=== PATIENT | male | born 1985 | race African-American/Black ===

== ENCOUNTER 2018-11-28 18:48 | Emergency (ER) | payer SELFPAY ==
--- NOTE | 2018-11-28 18:57 | EDM.PDOC ---
ED HPI GENERAL MEDICAL PROBLEM - General Chief Complaint: Chest Pain Stated Complaint: ALL OVER PAIN AND CHEST PAIN Time Seen by Provider: 11/28/18 18:51 - History of Present Illness INITIAL COMMENTS - FREE TEXT/NARRATIVE: HISTORY AND PHYSICAL: History of present illness: Patient's a 33-year-old black male who presents with concern of flu type symptoms and chest pain over several weeks he denies fever chills shortness of breath nausea vomiting or other complaints his main concern relates to generalized body aches and weakness Review of systems: As per history of present illness and below otherwise all systems reviewed and negative. Past medical history: As per history of present illness and as reviewed below otherwise noncontributory. Surgical history: As per history of present illness and as reviewed below otherwise noncontributory. Social history: No reported history of drug or alcohol abuse. Family history: As per history of present illness and as reviewed below otherwise noncontributory. Physical exam: HEENT: Atraumatic, normocephalic, pupils reactive, negative for conjunctival pallor or scleral icterus, mucous membranes moist, throat clear, neck supple, nontender, trachea midline. Lungs: Clear to auscultation, breath sounds equal bilaterally, chest nontender. Heart: S1S2, regular, negative for clicks, rubs, or JVD. Abdomen: Soft, nondistended, nontender. Negative for masses or hepatosplenomegaly. Negative for costovertebral tenderness. Pelvis: Stable nontender. Genitourinary: Deferred. Rectal: Deferred. Extremities: Atraumatic, negative for cords or calf pain. Neurovascular unremarkable. Neuro: Awake, alert, oriented. Cranial nerves II through XII unremarkable. Cerebellum unremarkable. Motor and sensory unremarkable throughout. Exam nonfocal. Diagnostics: CBC CMP troponin PT/INR chest x-ray EKG influenza screen Therapeutics: IV O2 monitor Impression: #1 atypical chest pain #2 probable viral syndrome Definitive disposition and diagnosis as appropriate pending reevaluation and review of above. - Related Data Allergies Allergy/AdvReac Type Severity Reaction Status Date / Time No Known Allergies Allergy Verified 11/28/18 18:54 Home Meds: Home Meds . [No Known Home Meds] 11/28/18 [History] ED ROS GENERAL - Review of Systems Review Of Systems: ROS reveals no pertinent complaints other than HPI. ED EXAM, GENERAL - Physical Exam Exam: See Below (See dictation) Course - Vital Signs Last Recorded V/S: Last Vital Signs Temp 36.3 C 11/28/18 18:54 Pulse 82 11/28/18 18:54 Resp 16 11/28/18 18:54 BP 120/81 11/28/18 18:54 Pulse Ox 98 11/28/18 19:17 - Orders/Labs/Meds Orders: Active Orders 24 hr Category Date Time Status Cardiac Monitoring [RC] . DIRECTED Care 11/28/18 19:15 Active EKG Documentation Completion [RC] STAT Care 11/28/18 19:15 Active Oxygen Therapy [RC] ASDIRECTED Care 11/28/18 19:15 Active Pulse Oximetry [RC] ASDIRECTED Care 11/28/18 19:15 Active COMPREHENSIVE METABOLIC PN,CMP [CHEM] Stat Lab 11/28/18 19:10 Results TROPONIN I [CHEM] Stat Lab 11/28/18 19:10 Results Sodium Chloride 0.9% [Saline Flush] Med 11/28/18 19:15 Active 10 ml FLUSH ASDIRECTED PRN Sodium Chloride 0.9% [Saline Flush] Med 11/28/18 19:15 Active 2.5 ml FLUSH ASDIRECTED PRN Saline Lock Insert [OM.PC] Stat Oth 11/28/18 19:15 Ordered Medication Orders Sodium Chloride (Saline Flush) 10 ml FLUSH ASDIRECTED PRN PRN Reason: Keep Vein Open Sodium Chloride (Saline Flush) 2.5 ml FLUSH ASDIRECTED PRN PRN Reason: Keep Vein Open Labs: Laboratory Tests 11/28/18 11/28/18 11/28/18 Range/Units 19:10 19:10 19:15 WBC 4.88 (4.0-11.0) K/uL RBC 5.86 (4.50-5.90) M/uL Hgb 18.1 H (13.0-17.0) g/dL Hct 50.2 H (38.0-50.0) % MCV 85.7 (80.0-98.0) fL MCH 30.9 (27.0-32.0) pg MCHC 36.1 (31.0-37.0) g/dL RDW Std Deviation 39.3 (28.0-62.0) fl RDW Coeff of Jannette 13 (11.0-15.0) % Plt Count 136 L (150-400) K/uL MPV 11.30 (7.40-12.00) fL Neut % (Auto) 68.5 (48.0-80.0) % Lymph % (Auto) 21.7 (16.0-40.0) % [place] % (Auto) 9.0 (0.0-15.0) % Eos % (Auto) 0.6 (0.0-7.0) % Baso % (Auto) 0.2 (0.0-1.5) % Neut # (Auto) 3.3 (1.4-5.7) K/uL Lymph # (Auto) 1.1 (0.6-2.4) K/uL [place] # (Auto) 0.4 (0.0-0.8) K/uL Eos # (Auto) 0.0 (0.0-0.7) K/uL Baso # (Auto) 0.0 (0.0-0.1) K/uL Nucleated RBC % 0.0 /100WBC Nucleated RBCs # 0 K/uL INR 0.99 Sodium 138 (136-148) mmol/L Potassium 4.5 (3.5-5.1) mmol/L Chloride 102 (98-107) mmol/L Carbon Dioxide 31.8 (21.0-32.0) mmol/L BUN 18 (7.0-18.0) mg/dL Creatinine 1.6 H (0.8-1.3) mg/dL Est Cr Clr Drug Dosing TNP Estimated GFR (MDRD) > 60.0 ml/min Glucose 115 H (74-106) mg/dL Calcium 8.4 L (8.5-10.1) mg/dL Total Bilirubin 0.9 (0.2-1.0) mg/dL ALT 619 H (14-63) IU/L Alkaline Phosphatase 65 (46-116) U/L Troponin I < 0.050 (0.000-0.056) ng/mL Total Protein 7.5 (6.4-8.2) g/dL Albumin 3.4 (3.4-5.0) g/dL Globulin 4.1 H (2.6-4.0) g/dL Albumin/Globulin Ratio 0.8 L (0.9-1.6) Meds: Medications Generic Name Dose Route Start Last Admin Trade Name Freq PRN Reason Stop Dose Admin Sodium Chloride 10 ml 11/28/18 19:15 Saline Flush FLUSH ASDIRECTED PRN Keep Vein Open Sodium Chloride 2.5 ml 11/28/18 19:15 Saline Flush FLUSH ASDIRECTED PRN Keep Vein Open Departure - Departure Time of Disposition: 20:04 Disposition: Home, Self-Care 01 Condition: Good Clinical Impression: Influenza A, Dehydration - Discharge Information Forms: ED Department Discharge Additional Instructions: The following information is given to patients seen in the emergency department who are being discharged to home. This information is to outline your options for follow-up care. We provide all patients seen in our emergency department with a follow-up referral. The need for follow-up, as well as the timing and circumstances, are variable depending upon the specifics of your emergency department visit. If you don't have a primary care physician on staff, we will provide you with a referral. We always advise you to contact your personal physician following an emergency department visit to inform them of the circumstance of the visit and for follow-up with them and/or the need for any referrals to a consulting specialist. The emergency department will also refer you to a specialist when appropriate. This referral assures that you have the opportunity for followup care with a specialist. All of these measure are taken in an effort to provide you with optimal care, which includes your followup. Under all circumstances we always encourage you to contact your private physician who remains a resource for coordinating your care. When calling for followup care, please make the office aware that this follow-up is from your recent emergency room visit. If for any reason you are refused follow-up, please contact the [facility] emergency department at and asked to speak to the emergency department charge nurse. Push fluids contact precautions as discussed follow-up private medical doctor as needed as discussed and return as needed as discussed - My Orders Last 24 Hours: My Active Orders 11/28/18 19:10 COMPREHENSIVE METABOLIC PN,CMP [CHEM] Stat TROPONIN I [CHEM] Stat 11/28/18 19:15 Cardiac Monitoring [RC] . DIRECTED EKG Documentation Completion [RC] STAT Oxygen Therapy [RC] ASDIRECTED Pulse Oximetry [RC] ASDIRECTED Sodium Chloride 0.9% [Saline Flush] 10 ml FLUSH ASDIRECTED PRN Sodium Chloride 0.9% [Saline Flush] 2.5 ml FLUSH ASDIRECTED PRN Saline Lock Insert [OM.PC] Stat - Assessment/Plan Last 24 Hours: My Active Orders 11/28/18 19:10 COMPREHENSIVE METABOLIC PN,CMP [CHEM] Stat TROPONIN I [CHEM] Stat 11/28/18 19:15 Cardiac Monitoring [RC] . DIRECTED EKG Documentation Completion [RC] STAT Oxygen Therapy [RC] ASDIRECTED Pulse Oximetry [RC] ASDIRECTED Sodium Chloride 0.9% [Saline Flush] 10 ml FLUSH ASDIRECTED PRN Sodium Chloride 0.9% [Saline Flush] 2.5 ml FLUSH ASDIRECTED PRN Saline Lock Insert [OM.PC] Stat
[2018-11-28] MEDS ORDERED: Sodium Chloride 0.9% 2.5 ML Syringe FLUSH PRN (19:15)
[2018-11-28] MEDS ORDERED: Sodium Chloride 0.9% 10 ML Syringe FLUSH PRN (19:15)
[2018-11-28 19:36] LABS: CHLORIDE,CL 102 mmol/L (98-107); SODIUM,NA 138 mmol/L (136-148)
--- NOTE | 2018-11-28 20:04 | CR ---
INDICATION: chest pain TECHNIQUE: Chest 1 view. COMPARISON: None. FINDINGS: Cardiovascular and mediastinum: Heart size and vasculature are normal in caliber and appearance. Mediastinum is within normal limits. Lungs and pleural space: Lungs are clear. No sign of infiltrate or mass. No sign of pleural effusion. No pneumothorax. Bones and soft tissues: No significant findings. IMPRESSION: Unremarkable chest. Dictated by: Bethel Lerma MD @ 11/28/2018 20:03:13 (Electronically Signed)
[2018-11-28] MEDS ORDERED: Sodium Chloride 0.9% 1,000 ML IV SCH (20:15)
== END 2018-11-28 21:03 | disposition home or self-care (01) ==
LOC: MW.ED 18:48
DX: J10.1 Influenza due to other identified influenza virus with other respiratory manifestations (principal); R07.89 Other chest pain
CPT/HCPCS: 36415; 71045; 80053; 84484; 85025; 85610; 87804; 93005; 96360; 99284; J7040

== ENCOUNTER 2018-12-02 14:49 | Inpatient (IN) | payer OTHER ==
--- NOTE | 2018-12-02 16:06 | EDM.PDOC ---
ED HPI GENERAL MEDICAL PROBLEM - General Chief Complaint: Genitourinary Problem Stated Complaint: FLU Time Seen by Provider: 12/02/18 16:03 - History of Present Illness INITIAL COMMENTS - FREE TEXT/NARRATIVE: HISTORY AND PHYSICAL: History of present illness: Patient 33-year-old black male who was recently diagnosed with influenza who states he's noted dark urine and was concerned about possible blood in his urine over the last day or so. He is otherwise without new complaints he denies trauma denies history urolithiasis denies abdominal or back pain. Review of systems: As per history of present illness and below otherwise all systems reviewed and negative. Past medical history: As per history of present illness and as reviewed below otherwise noncontributory. Surgical history: As per history of present illness and as reviewed below otherwise noncontributory. Social history: No reported history of drug or alcohol abuse. Family history: As per history of present illness and as reviewed below otherwise noncontributory. Physical exam: HEENT: Atraumatic, normocephalic, pupils reactive, negative for conjunctival pallor or scleral icterus, mucous membranes moist, throat clear, neck supple, nontender, trachea midline. Lungs: Clear to auscultation, breath sounds equal bilaterally, chest nontender. Heart: S1S2, regular, negative for clicks, rubs, or JVD. Abdomen: Soft, nondistended, nontender. Negative for masses or hepatosplenomegaly. Negative for costovertebral tenderness. Pelvis: Stable nontender. Genitourinary: Deferred. Rectal: Deferred. Extremities: Atraumatic, negative for cords or calf pain. Neurovascular unremarkable. Neuro: Awake, alert, oriented. Cranial nerves II through XII unremarkable. Cerebellum unremarkable. Motor and sensory unremarkable throughout. Exam nonfocal. Diagnostics: UA Therapeutics: None Impression: #1 history of influenza #2 medical screening exam Definitive disposition and diagnosis as appropriate pending reevaluation and review of above. generalized body Pain Score (Numeric/FACES): 5 - Related Data Allergies Allergy/AdvReac Type Severity Reaction Status Date / Time No Known Allergies Allergy Verified 12/02/18 15:07 Home Meds: Home Meds . [No Known Home Meds] 11/28/18 [History] Past Medical History - Past Health History Medical/Surgical History: Denies Medical/Surgical History HEENT History: Reports: None Cardiovascular History: Reports: None Respiratory History: Reports: None Gastrointestinal History: Reports: None Genitourinary History: Reports: None Musculoskeletal History: Reports: None Neurological History: Reports: None Psychiatric History: Reports: None Endocrine/Metabolic History: Reports: None Hematologic History: Reports: None Immunologic History: Reports: None Oncologic (Cancer) History: Reports: None Dermatologic History: Reports: None - Infectious Disease History Infectious Disease History: Reports: None - Past Surgical History Head Surgeries/Procedures: Reports: None Social & Family History - Family History Family Medical History: Noncontributory - Tobacco Use Smoking Status *Q: Never Smoker Second Hand Smoke Exposure: No - Caffeine Use Caffeine Use: Reports: Tea - Recreational Drug Use Recreational Drug Use: No ED ROS GENERAL - Review of Systems Review Of Systems: ROS reveals no pertinent complaints other than HPI. ED EXAM, GENERAL - Physical Exam Exam: See Below (See dictation) Course - Vital Signs Last Recorded V/S: Last Vital Signs Temp 36.6 C 12/02/18 19:28 Pulse 91 12/02/18 19:28 Resp 20 12/02/18 19:28 BP 119/74 12/02/18 19:28 Pulse Ox 97 12/02/18 19:28 - Orders/Labs/Meds Labs: Laboratory Tests 12/02/18 12/02/18 12/02/18 Range/Units 15:55 16:23 16:23 WBC 10.15 (4.0-11.0) K/uL RBC 5.36 (4.50-5.90) M/uL Hgb 16.4 (13.0-17.0) g/dL Hct 45.8 (38.0-50.0) % MCV 85.4 (80.0-98.0) fL MCH 30.6 (27.0-32.0) pg MCHC 35.8 (31.0-37.0) g/dL RDW Std Deviation 39.6 (28.0-62.0) fl RDW Coeff of Jannette 13 (11.0-15.0) % Plt Count 241 (150-400) K/uL MPV 11.00 (7.40-12.00) fL Neut % (Auto) 83.9 H (48.0-80.0) % Lymph % (Auto) 8.2 L (16.0-40.0) % [place] % (Auto) 7.0 (0.0-15.0) % Eos % (Auto) 0.7 (0.0-7.0) % Baso % (Auto) 0.2 (0.0-1.5) % Neut # (Auto) 8.5 H (1.4-5.7) K/uL Lymph # (Auto) 0.8 (0.6-2.4) K/uL [place] # (Auto) 0.7 (0.0-0.8) K/uL Eos # (Auto) 0.1 (0.0-0.7) K/uL Baso # (Auto) 0.0 (0.0-0.1) K/uL Nucleated RBC % 0.0 /100WBC Nucleated RBCs # 0 K/uL Sodium 133 L (136-148) mmol/L Potassium 4.8 (3.5-5.1) mmol/L Chloride 101 (98-107) mmol/L Carbon Dioxide 25.2 (21.0-32.0) mmol/L BUN 26 H (7.0-18.0) mg/dL Creatinine 1.6 H (0.8-1.3) mg/dL Est Cr Clr Drug Dosing 66.89 mL/min Estimated GFR (MDRD) > 60.0 ml/min Glucose 175 H (74-106) mg/dL Calcium 8.8 (8.5-10.1) mg/dL Total Bilirubin 0.6 (0.2-1.0) mg/dL AST 2765 H (15-37) IU/L ALT 936 H (14-63) IU/L Alkaline Phosphatase 73 (46-116) U/L Creatine Kinase 094386 H (26-308) U/L Total Protein 6.7 (6.4-8.2) g/dL Albumin 2.4 L (3.4-5.0) g/dL Globulin 4.3 H (2.6-4.0) g/dL Albumin/Globulin Ratio 0.6 L (0.9-1.6) Urine Color BROWN Urine Appearance CLEAR Urine pH 6.0 (5.0-8.0) Ur Specific [place] >= 1.030 (1.001-1.035) Urine Protein >=300 H (NEGATIVE) mg/dL Urine Glucose (UA) NEGATIVE (NEGATIVE) mg/dL Urine Ketones NEGATIVE (NEGATIVE) mg/dL Urine Occult Blood LARGE H (NEGATIVE) Urine Nitrite POSITIVE H (NEGATIVE) Urine Bilirubin SMALL H (NEGATIVE) Urine Ictotest NEGATIVE Urine Urobilinogen 1.0 (<2.0) EU/dL Ur Leukocyte Esterase NEGATIVE (NEGATIVE) Urine RBC 2-3 (0-2/HPF) Urine WBC 0-1 (0-5/HPF) Ur Epithelial Cells RARE (NONE-FEW) Urine Bacteria FEW (NEGATIVE) Meds: Medications Discontinued Medications Generic Name Dose Route Start Last Admin Trade Name Freq PRN Reason Stop Dose Admin Sodium Chloride 2,000 mls @ 999 mls/hr 12/02/18 16:14 12/02/18 16:52 Normal Saline IV 12/02/18 18:14 999 mls/hr STAT ONE Administration Departure - Departure Time of Disposition: 19:38 Disposition: Admitted As Inpatient 68 Condition: Good Clinical Impression: Rhabdomyolysis, Transaminitis, Influenza A - Discharge Information Referrals: PCP,Unknown [Primary Care Provider] - Forms: ED Department Discharge
[2018-12-02] MEDS ORDERED: Sodium Chloride 0.9% 2,000 ML IV ONE (16:14)
[2018-12-02 17:02] LABS: CHLORIDE,CL 101 mmol/L (98-107); SODIUM,NA 133 mmol/L (136-148)
[2018-12-02] MEDS: Sodium Chloride 0.9% 1,000 ML IV SCH (19:41)
[2018-12-02] MEDS ORDERED: Sodium Chloride 0.9% 1,000 ML IV ONE ×2 (21:45→21:57)
--- NOTE | 2018-12-02 22:27 | PCM.HP ---
H&P History of Present Illness - General Date of Service: 12/02/18 Admit Problem/Dx: Admission Diagnosis/Problem Admission Diagnosis/Problem Rhabdomyolysis - History of Present Illness Initial Comments - Free Text/Narative: 33 yo male who presents with five day history of fevers, myalgias and cough. He tested positive for influenza A November 28 when he seen in the ED. He presents to the ED again due to worsening symptoms and dark colored urine. He does report some pain on urination. Patient denies any use of over the counter medications. generalized body Pain Score (Numeric/FACES): 2 - Related Data Allergies/Adverse Reactions: Allergies Allergy/AdvReac Type Severity Reaction Status Date / Time No Known Allergies Allergy Verified 12/02/18 15:07 Home Medications: Home Meds . [No Known Home Meds] 11/28/18 [History] Past Medical History - Past Health History Medical/Surgical History: Denies Medical/Surgical History HEENT History: Reports: None Cardiovascular History: Reports: None Respiratory History: Reports: None Gastrointestinal History: Reports: None Genitourinary History: Reports: None Musculoskeletal History: Reports: None Neurological History: Reports: None Psychiatric History: Reports: None Endocrine/Metabolic History: Reports: None Hematologic History: Reports: None Immunologic History: Reports: None Oncologic (Cancer) History: Reports: None Dermatologic History: Reports: None - Infectious Disease History Infectious Disease History: Reports: Influenza - Past Surgical History Head Surgeries/Procedures: Reports: None HEENT Surgical History: Reports: None Social & Family History - Family History Family Medical History: Noncontributory - Tobacco Use Smoking Status *Q: Never Smoker Second Hand Smoke Exposure: No - Caffeine Use Caffeine Use: Reports: Tea - Recreational Drug Use Recreational Drug Use: No H&P Review of Systems - Review of Systems: Review Of Systems: ROS reveals no pertinent complaints other than HPI. Exam - Exam Exam: See Below - Vital Signs Vital Signs: Last Vital Signs Temp 36.6 C 12/02/18 19:28 Pulse 91 12/02/18 19:28 Resp 20 12/02/18 19:28 BP 119/74 12/02/18 19:28 Pulse Ox 97 12/02/18 19:28 Weight: 86 kg - Exam General: Alert, Oriented Lungs: Clear to Auscultation, Normal Respiratory Effort Cardiovascular: Regular Rate, Regular Rhythm GI/Abdominal Exam: Soft, Non-Tender Extremities: Non-Tender, No Pedal Edema Skin: Warm, Dry, Intact - Patient Data Lab Results Last 24 hrs: Laboratory Results - last 24 hr 12/02/18 12/02/18 12/02/18 Range/Units 15:55 16:23 16:23 WBC 10.15 (4.0-11.0) K/uL RBC 5.36 (4.50-5.90) M/uL Hgb 16.4 (13.0-17.0) g/dL Hct 45.8 (38.0-50.0) % MCV 85.4 (80.0-98.0) fL MCH 30.6 (27.0-32.0) pg MCHC 35.8 (31.0-37.0) g/dL RDW Std Deviation 39.6 (28.0-62.0) fl RDW Coeff of Jannette 13 (11.0-15.0) % Plt Count 241 (150-400) K/uL MPV 11.00 (7.40-12.00) fL Neut % (Auto) 83.9 H (48.0-80.0) % Lymph % (Auto) 8.2 L (16.0-40.0) % [place] % (Auto) 7.0 (0.0-15.0) % Eos % (Auto) 0.7 (0.0-7.0) % Baso % (Auto) 0.2 (0.0-1.5) % Neut # (Auto) 8.5 H (1.4-5.7) K/uL Lymph # (Auto) 0.8 (0.6-2.4) K/uL [place] # (Auto) 0.7 (0.0-0.8) K/uL Eos # (Auto) 0.1 (0.0-0.7) K/uL Baso # (Auto) 0.0 (0.0-0.1) K/uL Nucleated RBC % 0.0 /100WBC Nucleated RBCs # 0 K/uL Sodium 133 L (136-148) mmol/L Potassium 4.8 (3.5-5.1) mmol/L Chloride 101 (98-107) mmol/L Carbon Dioxide 25.2 (21.0-32.0) mmol/L BUN 26 H (7.0-18.0) mg/dL Creatinine 1.6 H (0.8-1.3) mg/dL Est Cr Clr Drug Dosing 66.89 mL/min Estimated GFR (MDRD) > 60.0 ml/min Glucose 175 H (74-106) mg/dL Calcium 8.8 (8.5-10.1) mg/dL Total Bilirubin 0.6 (0.2-1.0) mg/dL AST 2765 H (15-37) IU/L ALT 936 H (14-63) IU/L Alkaline Phosphatase 73 (46-116) U/L Creatine Kinase 823932 H (26-308) U/L Total Protein 6.7 (6.4-8.2) g/dL Albumin 2.4 L (3.4-5.0) g/dL Globulin 4.3 H (2.6-4.0) g/dL Albumin/Globulin Ratio 0.6 L (0.9-1.6) Urine Color BROWN Urine Appearance CLEAR Urine pH 6.0 (5.0-8.0) Ur Specific [place] >= 1.030 (1.001-1.035) Urine Protein >=300 H (NEGATIVE) mg/dL Urine Glucose (UA) NEGATIVE (NEGATIVE) mg/dL Urine Ketones NEGATIVE (NEGATIVE) mg/dL Urine Occult Blood LARGE H (NEGATIVE) Urine Nitrite POSITIVE H (NEGATIVE) Urine Bilirubin SMALL H (NEGATIVE) Urine Ictotest NEGATIVE Urine Urobilinogen 1.0 (<2.0) EU/dL Ur Leukocyte Esterase NEGATIVE (NEGATIVE) Urine RBC 2-3 (0-2/HPF) Urine WBC 0-1 (0-5/HPF) Ur Epithelial Cells RARE (NONE-FEW) Urine Bacteria FEW (NEGATIVE) Result Diagrams: 12/02/18 16:23 12/02/18 16:23 Problem List Initiated/Reviewed/Updated: Yes Orders Last 24hrs: Active Orders 24 hr Category Date Time Status Patient Status [ADT] Stat ADT 12/02/18 19:39 Active Oxygen Therapy [RC] PRN Care 12/02/18 22:22 Ordered Up ad Lina [RC] ASDIRECTED Care 12/02/18 22:22 Ordered VTE/DVT Education [RC] PER UNIT ROUTINE Care 12/02/18 22:22 Ordered Vital Signs [RC] Q4H Care 12/02/18 22:22 Ordered Regular Diet [DIET] Diet 12/02/18 Breakfast Ordered CBC WITH AUTO DIFF [HEME] AM Lab 12/03/18 05:11 Ordered COMPREHENSIVE METABOLIC PN,CMP [CHEM] AM Lab 12/03/18 05:11 Ordered CULTURE URINE [RM] Stat Lab 12/02/18 22:22 Ordered Oseltamivir [Tamiflu] Med 12/02/18 22:30 Ordered 75 mg PO DAILY Sodium Chloride 0.9% [Normal Saline] 1,000 ml Med 12/02/18 19:45 Active IV ASDIRECTED Sodium Chloride 0.9% [Normal Saline] 1,000 ml Med 12/02/18 22:30 Ordered IV ASDIRECTED Sodium Chloride 0.9% [Normal Saline] 1,000 ml Med 12/02/18 21:45 Active IV ONETIME Sodium Chloride 0.9% [Normal Saline] 1,000 ml Med 12/02/18 21:57 Active IV ONETIME cefTRIAXone [Rocephin] 1 gm Med 12/02/18 22:30 Ordered Sodium Chloride 0.9% [Normal Saline] 50 ml IV Q24H Sequential Compression Device [OM.PC] Per Unit Routine Oth 12/02/18 22:23 Ordered Resuscitation Status Routine Resus Stat 12/02/18 22:22 Ordered Medication Orders Sodium Chloride (Normal Saline) 1,000 mls @ 250 mls/hr IV ASDIRECTED [facility] Last Admin: 12/02/18 19:41 Dose: 250 mls/hr Sodium Chloride (Normal Saline) 1,000 mls @ 999 mls/hr IV ONETIME ONE Stop: 12/02/18 22:45 Sodium Chloride (Normal Saline) 1,000 mls @ 999 mls/hr IV ONETIME ONE Stop: 12/02/18 22:57 Sodium Chloride (Normal Saline) 1,000 mls @ 250 mls/hr IV ASDIRECTED [facility] Assessment/Plan Comment:: 33 yo male admitted for Rhabdomyolisis, Influenza and possible UTI. We will treat with appropriate fluid resuscitation. Yari currently is having good urine output. We will also treat with Tamiflu and Rocephin.
[2018-12-02] MEDS ORDERED: Morphine 2 MG/ML Syringe IVPUSH PRN (22:35)
[2018-12-02] MEDS: Oseltamivir 75 MG Cap PO SCH (22:48)
[2018-12-02] MEDS: cefTRIAXone 1 GM in Sodium Chloride 0.9% 50 ML IV SCH (22:52)
[2018-12-03] MEDS: Sodium Chloride 0.9% 1,000 ML IV SCH ×6 (02:43→20:16)
[2018-12-03 06:22] LABS: CHLORIDE,CL 107 mmol/L (98-107); SODIUM,NA 138 mmol/L (136-148)
--- NOTE | 2018-12-03 08:57 | PCM.PN ---
- General Info Date of Service: 12/03/18 Admission Dx/Problem (Free Text): Admission Diagnosis/Problem Admission Diagnosis/Problem Rhabdomyolysis Subjective Update: Reports feeling improved today. NO chest pain. Muscle weakness is improved, up in room per self. Congestion ok. Urine color still dark, but lightening up. Functional Status: Reports: Pain Controlled, Tolerating Diet, Ambulating, Urinating - Review of Systems General: Reports: Weakness, Fatigue, Malaise HEENT: Reports: Sinus Congestion. Denies: Headaches Pulmonary: Reports: No Symptoms. Denies: Shortness of Breath Cardiovascular: Reports: No Symptoms Gastrointestinal: Reports: No Symptoms. Denies: Abdominal Pain, Nausea, Vomiting Genitourinary: Reports: Other (dark urine, improving) Musculoskeletal: Reports: Other (generalized ache) Skin: Reports: No Symptoms Neurological: Reports: No Symptoms Psychiatric: Reports: No Symptoms - Patient Data Vitals - Most Recent: Last Vital Signs Temp 97.2 F 12/03/18 04:00 Pulse 77 12/03/18 04:00 Resp 16 12/03/18 04:00 BP 114/61 12/03/18 04:00 Pulse Ox 98 12/03/18 04:00 Weight - Most Recent: 86 kg I&O - Last 24 Hours: Intake & Output 12/02/18 12/03/18 12/03/18 22:59 06:59 14:59 Intake Total 3599 Output Total 800 Balance 2799 Lab Results Last 24 Hours: Laboratory Results - last 24 hr 12/02/18 12/02/18 12/02/18 Range/Units 15:55 16:23 16:23 WBC 10.15 (4.0-11.0) K/uL RBC 5.36 (4.50-5.90) M/uL Hgb 16.4 (13.0-17.0) g/dL Hct 45.8 (38.0-50.0) % MCV 85.4 (80.0-98.0) fL MCH 30.6 (27.0-32.0) pg MCHC 35.8 (31.0-37.0) g/dL RDW Std Deviation 39.6 (28.0-62.0) fl RDW Coeff of Jannette 13 (11.0-15.0) % Plt Count 241 (150-400) K/uL MPV 11.00 (7.40-12.00) fL Neut % (Auto) 83.9 H (48.0-80.0) % Lymph % (Auto) 8.2 L (16.0-40.0) % [place] % (Auto) 7.0 (0.0-15.0) % Eos % (Auto) 0.7 (0.0-7.0) % Baso % (Auto) 0.2 (0.0-1.5) % Neut # (Auto) 8.5 H (1.4-5.7) K/uL Lymph # (Auto) 0.8 (0.6-2.4) K/uL [place] # (Auto) 0.7 (0.0-0.8) K/uL Eos # (Auto) 0.1 (0.0-0.7) K/uL Baso # (Auto) 0.0 (0.0-0.1) K/uL Nucleated RBC % 0.0 /100WBC Nucleated RBCs # 0 K/uL Sodium 133 L (136-148) mmol/L Potassium 4.8 (3.5-5.1) mmol/L Chloride 101 (98-107) mmol/L Carbon Dioxide 25.2 (21.0-32.0) mmol/L BUN 26 H (7.0-18.0) mg/dL Creatinine 1.6 H (0.8-1.3) mg/dL Est Cr Clr Drug Dosing 66.89 mL/min Estimated GFR (MDRD) > 60.0 ml/min Glucose 175 H (74-106) mg/dL Calcium 8.8 (8.5-10.1) mg/dL Total Bilirubin 0.6 (0.2-1.0) mg/dL AST 2765 H (15-37) IU/L ALT 936 H (14-63) IU/L Alkaline Phosphatase 73 (46-116) U/L Creatine Kinase 306484 H (26-308) U/L Total Protein 6.7 (6.4-8.2) g/dL Albumin 2.4 L (3.4-5.0) g/dL Globulin 4.3 H (2.6-4.0) g/dL Albumin/Globulin Ratio 0.6 L (0.9-1.6) Urine Color BROWN Urine Appearance CLEAR Urine pH 6.0 (5.0-8.0) Ur Specific [place] >= 1.030 (1.001-1.035) Urine Protein >=300 H (NEGATIVE) mg/dL Urine Glucose (UA) NEGATIVE (NEGATIVE) mg/dL Urine Ketones NEGATIVE (NEGATIVE) mg/dL Urine Occult Blood LARGE H (NEGATIVE) Urine Nitrite POSITIVE H (NEGATIVE) Urine Bilirubin SMALL H (NEGATIVE) Urine Ictotest NEGATIVE Urine Urobilinogen 1.0 (<2.0) EU/dL Ur Leukocyte Esterase NEGATIVE (NEGATIVE) Urine RBC 2-3 (0-2/HPF) Urine WBC 0-1 (0-5/HPF) Ur Epithelial Cells RARE (NONE-FEW) Urine Bacteria FEW (NEGATIVE) 12/03/18 12/03/18 Range/Units 05:40 05:40 WBC 8.41 (4.0-11.0) K/uL RBC 4.67 (4.50-5.90) M/uL Hgb 14.0 (13.0-17.0) g/dL Hct 40.5 (38.0-50.0) % MCV 86.7 (80.0-98.0) fL MCH 30.0 (27.0-32.0) pg MCHC 34.6 (31.0-37.0) g/dL RDW Std Deviation 40.9 (28.0-62.0) fl RDW Coeff of Jannette 13 (11.0-15.0) % Plt Count 220 (150-400) K/uL MPV 11.10 (7.40-12.00) fL Neut % (Auto) 78.3 (48.0-80.0) % Lymph % (Auto) 11.9 L (16.0-40.0) % [place] % (Auto) 8.9 (0.0-15.0) % Eos % (Auto) 0.8 (0.0-7.0) % Baso % (Auto) 0.1 (0.0-1.5) % Neut # (Auto) 6.6 H (1.4-5.7) K/uL Lymph # (Auto) 1.0 (0.6-2.4) K/uL [place] # (Auto) 0.8 (0.0-0.8) K/uL Eos # (Auto) 0.1 (0.0-0.7) K/uL Baso # (Auto) 0.0 (0.0-0.1) K/uL Nucleated RBC % 0.0 /100WBC Nucleated RBCs # 0 K/uL Sodium 138 (136-148) mmol/L Potassium 5.1 (3.5-5.1) mmol/L Chloride 107 (98-107) mmol/L Carbon Dioxide 24.8 (21.0-32.0) mmol/L BUN 22 H (7.0-18.0) mg/dL Creatinine 1.3 (0.8-1.3) mg/dL Est Cr Clr Drug Dosing 82.06 mL/min Estimated GFR (MDRD) > 60.0 ml/min Glucose 92 (74-106) mg/dL Calcium 8.4 L (8.5-10.1) mg/dL Total Bilirubin 0.6 (0.2-1.0) mg/dL AST 1654 H (15-37) IU/L ALT 678 H (14-63) IU/L Alkaline Phosphatase 56 (46-116) U/L Creatine Kinase (26-308) U/L Total Protein 5.1 L (6.4-8.2) g/dL Albumin 1.8 L (3.4-5.0) g/dL Globulin 3.3 (2.6-4.0) g/dL Albumin/Globulin Ratio 0.6 L (0.9-1.6) Urine Color Urine Appearance Urine pH (5.0-8.0) Ur Specific [place] (1.001-1.035) Urine Protein (NEGATIVE) mg/dL Urine Glucose (UA) (NEGATIVE) mg/dL Urine Ketones (NEGATIVE) mg/dL Urine Occult Blood (NEGATIVE) Urine Nitrite (NEGATIVE) Urine Bilirubin (NEGATIVE) Urine Ictotest Urine Urobilinogen (<2.0) EU/dL Ur Leukocyte Esterase (NEGATIVE) Urine RBC (0-2/HPF) Urine WBC (0-5/HPF) Ur Epithelial Cells (NONE-FEW) Urine Bacteria (NEGATIVE) Med Orders - Current: Current Medications Sodium Chloride (Normal Saline) 1,000 mls @ 250 mls/hr IV ASDIRECTED [facility] Last Admin: 12/03/18 07:11 Dose: 250 mls/hr Sodium Chloride (Normal Saline) 1,000 mls @ 250 mls/hr IV ASDIRECTED [facility] Last Admin: 12/03/18 02:43 Dose: 250 mls/hr Ceftriaxone Sodium 1 gm/ (Sodium Chloride) 50 mls @ 100 mls/hr IV Q24H [facility] Last Admin: 12/02/18 22:52 Dose: 100 mls/hr Morphine Sulfate (Morphine) 2 mg IVPUSH Q4H PRN PRN Reason: Pain Oseltamivir Phosphate (Tamiflu) 75 mg PO DAILY [facility] Last Admin: 12/02/18 22:48 Dose: 75 mg Discontinued Medications Sodium Chloride (Normal Saline) 2,000 mls @ 999 mls/hr IV STAT ONE Stop: 12/02/18 18:14 Last Admin: 12/02/18 16:52 Dose: 999 mls/hr Sodium Chloride (Normal Saline) 1,000 mls @ 999 mls/hr IV ONETIME ONE Stop: 12/02/18 22:45 Last Admin: 12/03/18 00:14 Dose: 999 mls/hr Sodium Chloride (Normal Saline) 1,000 mls @ 999 mls/hr IV ONETIME ONE Stop: 12/02/18 22:57 Last Admin: 12/03/18 01:34 Dose: 999 mls/hr - Exam General: Alert, Oriented, Cooperative, No Acute Distress HEENT: Pupils Equal, Mucous Membr. Moist/[place] Neck: Supple Lungs: Clear to Auscultation, Normal Respiratory Effort Cardiovascular: Regular Rate, Regular Rhythm, No Murmurs GI/Abdominal Exam: Normal Bowel Sounds, Soft, Non-Tender, No Mass Back Exam: Normal Inspection, Full Range of Motion Extremities: Normal Inspection, Normal Range of Motion, Non-Tender, No Pedal Edema Neurological: No New Focal Deficit Psy/Mental Status: Alert, Normal Affect, Normal Mood - Problem List & Annotations (1) Rhabdomyolysis SNOMED Code(s): 419594798 Code(s): M62.82 - RHABDOMYOLYSIS Status: Acute Current Visit: Yes (2) UTI (urinary tract infection) SNOMED Code(s): 75041717 Code(s): N39.0 - URINARY TRACT INFECTION, SITE NOT SPECIFIED Status: Suspected Current Visit: Yes Qualifiers: Urinary tract infection type: acute cystitis Hematuria presence: with hematuria Qualified Code(s): N30.01 - Acute cystitis with hematuria (3) Influenza A SNOMED Code(s): 584069215 Code(s): J10.1 - FLU DUE TO OTH IDENT INFLUENZA VIRUS W OTH RESP MANIFEST Status: Acute Current Visit: Yes (4) Transaminitis SNOMED Code(s): 528062145, 589258483 Code(s): R74.0 - NONSPEC ELEV OF LEVELS OF TRANSAMNS & LACTIC ACID DEHYDRGNSE Status: Acute Current Visit: Yes (5) Dehydration SNOMED Code(s): 74534838 Code(s): E86.0 - DEHYDRATION Status: Acute Current Visit: No (6) KARENA (acute kidney injury) SNOMED Code(s): 42503726 Code(s): N17.9 - ACUTE KIDNEY FAILURE, UNSPECIFIED Status: Acute Current Visit: Yes - Problem List Review Problem List Initiated/Reviewed/Updated: Yes - My Orders Last 24 Hours: My Active Orders 12/03/18 05:40 CREATINE KINASE,CK [CHEM] Routine - Plan Plan:: 33 yo male admitted for Rhabdomyolysis, Influenza and possible UTI. 1. Rhabdomyolysis: CPK 171,600, will give 2 L bolus now and Continue to with NS at 250 ml/hr. KARENA improving and patient continues to have good urine output. Strict I/O 2. Influenza A: Improving, continue with Tamiflu 3. UTI: suspected, UC pending. Continue with Rocephin. VTE prophylaxis: SCDs Dispo: 2-4 days pending improvement.
[2018-12-03] MEDS: Oseltamivir 75 MG Cap PO SCH (09:25)
[2018-12-03] MEDS: cefTRIAXone 1 GM in Sodium Chloride 0.9% 50 ML IV SCH (22:02)
[2018-12-04] MEDS: Sodium Chloride 0.9% 1,000 ML IV SCH ×4 (01:03→21:34)
[2018-12-04 06:58] LABS: CHLORIDE,CL 107 mmol/L (98-107); SODIUM,NA 138 mmol/L (136-148)
--- NOTE | 2018-12-04 08:35 | PCM.PN ---
- General Info Date of Service: 12/04/18 Admission Dx/Problem (Free Text): Admission Diagnosis/Problem Admission Diagnosis/Problem Rhabdomyolysis Subjective Update: Continues to feel better daily, feeling puffy from fluids. No fevers chills or cough. No pain currently. Generalized weakness improving Functional Status: Reports: Pain Controlled, Tolerating Diet, Ambulating, Urinating - Review of Systems General: Reports: Weakness (generalized), Fatigue. Denies: Fever HEENT: Reports: No Symptoms. Denies: Headaches, Sore Throat, Visual Changes Pulmonary: Reports: No Symptoms. Denies: Shortness of Breath Cardiovascular: Reports: No Symptoms. Denies: Chest Pain Gastrointestinal: Reports: No Symptoms. Denies: Abdominal Pain, Nausea, Vomiting Genitourinary: Reports: No Symptoms. Denies: Dysuria, Frequency, Burning Musculoskeletal: Reports: No Symptoms Skin: Reports: No Symptoms Neurological: Reports: No Symptoms Psychiatric: Reports: No Symptoms - Patient Data Vitals - Most Recent: Last Vital Signs Temp 98.6 F 12/04/18 08:00 Pulse 90 12/04/18 08:00 Resp 14 12/04/18 08:00 BP 128/58 L 12/04/18 08:00 Pulse Ox 96 12/04/18 08:00 Weight - Most Recent: 86 kg I&O - Last 24 Hours: Intake & Output 12/03/18 12/04/18 12/04/18 22:59 06:59 14:59 Intake Total 1049 2798 Output Total 850 Balance 1049 1948 Lab Results Last 24 Hours: Laboratory Results - last 24 hr 12/03/18 12/03/18 12/04/18 Range/Units 05:40 14:40 05:31 WBC (4.0-11.0) K/uL RBC (4.50-5.90) M/uL Hgb (13.0-17.0) g/dL Hct (38.0-50.0) % MCV (80.0-98.0) fL MCH (27.0-32.0) pg MCHC (31.0-37.0) g/dL RDW Std Deviation (28.0-62.0) fl RDW Coeff of Jannette (11.0-15.0) % Plt Count (150-400) K/uL MPV (7.40-12.00) fL Neut % (Auto) (48.0-80.0) % Lymph % (Auto) (16.0-40.0) % [place] % (Auto) (0.0-15.0) % Eos % (Auto) (0.0-7.0) % Baso % (Auto) (0.0-1.5) % Neut # (Auto) (1.4-5.7) K/uL Lymph # (Auto) (0.6-2.4) K/uL [place] # (Auto) (0.0-0.8) K/uL Eos # (Auto) (0.0-0.7) K/uL Baso # (Auto) (0.0-0.1) K/uL Nucleated RBC % /100WBC Nucleated RBCs # K/uL Sodium 138 (136-148) mmol/L Potassium 4.4 (3.5-5.1) mmol/L Chloride 107 (98-107) mmol/L Carbon Dioxide 23.2 (21.0-32.0) mmol/L BUN 21 H (7.0-18.0) mg/dL Creatinine 1.3 (0.8-1.3) mg/dL Est Cr Clr Drug Dosing 82.06 mL/min Estimated GFR (MDRD) > 60.0 ml/min Glucose 87 (74-106) mg/dL Calcium 8.5 (8.5-10.1) mg/dL Total Bilirubin 0.5 (0.2-1.0) mg/dL AST 1364 H (15-37) IU/L ALT 642 H (14-63) IU/L Alkaline Phosphatase 63 (46-116) U/L Creatine Kinase 436442 H 27122 H 398721 H (26-308) U/L Total Protein 5.1 L (6.4-8.2) g/dL Albumin 1.7 L (3.4-5.0) g/dL Globulin 3.4 (2.6-4.0) g/dL Albumin/Globulin Ratio 0.5 L (0.9-1.6) 12/04/18 Range/Units 05:35 WBC 9.31 (4.0-11.0) K/uL RBC 4.69 (4.50-5.90) M/uL Hgb 13.8 (13.0-17.0) g/dL Hct 40.9 (38.0-50.0) % MCV 87.2 (80.0-98.0) fL MCH 29.4 (27.0-32.0) pg MCHC 33.7 (31.0-37.0) g/dL RDW Std Deviation 41.3 (28.0-62.0) fl RDW Coeff of Jannette 13 (11.0-15.0) % Plt Count 229 (150-400) K/uL MPV 10.90 (7.40-12.00) fL Neut % (Auto) 80.7 H (48.0-80.0) % Lymph % (Auto) 9.3 L (16.0-40.0) % [place] % (Auto) 9.2 (0.0-15.0) % Eos % (Auto) 0.6 (0.0-7.0) % Baso % (Auto) 0.2 (0.0-1.5) % Neut # (Auto) 7.5 H (1.4-5.7) K/uL Lymph # (Auto) 0.9 (0.6-2.4) K/uL [place] # (Auto) 0.9 H (0.0-0.8) K/uL Eos # (Auto) 0.1 (0.0-0.7) K/uL Baso # (Auto) 0.0 (0.0-0.1) K/uL Nucleated RBC % 0.0 /100WBC Nucleated RBCs # 0 K/uL Sodium (136-148) mmol/L Potassium (3.5-5.1) mmol/L Chloride (98-107) mmol/L Carbon Dioxide (21.0-32.0) mmol/L BUN (7.0-18.0) mg/dL Creatinine (0.8-1.3) mg/dL Est Cr Clr Drug Dosing mL/min Estimated GFR (MDRD) ml/min Glucose (74-106) mg/dL Calcium (8.5-10.1) mg/dL Total Bilirubin (0.2-1.0) mg/dL AST (15-37) IU/L ALT (14-63) IU/L Alkaline Phosphatase (46-116) U/L Creatine Kinase (26-308) U/L Total Protein (6.4-8.2) g/dL Albumin (3.4-5.0) g/dL Globulin (2.6-4.0) g/dL Albumin/Globulin Ratio (0.9-1.6) Med Orders - Current: Current Medications Sodium Chloride (Normal Saline) 1,000 mls @ 250 mls/hr IV ASDIRECTED [facility] Last Admin: 12/04/18 05:23 Dose: 250 mls/hr Ceftriaxone Sodium 1 gm/ (Sodium Chloride) 50 mls @ 100 mls/hr IV Q24H [facility] Last Admin: 12/03/18 22:02 Dose: 100 mls/hr Sodium Chloride (Normal Saline) 1,000 mls @ 999 mls/hr IV ASDIRECTED [facility] Stop: 12/04/18 11:01 Last Admin: 12/03/18 13:03 Dose: 999 mls/hr Morphine Sulfate (Morphine) 2 mg IVPUSH Q4H PRN PRN Reason: Pain Oseltamivir Phosphate (Tamiflu) 75 mg PO DAILY [facility] Last Admin: 12/03/18 09:25 Dose: 75 mg Discontinued Medications Sodium Chloride (Normal Saline) 2,000 mls @ 999 mls/hr IV STAT ONE Stop: 12/02/18 18:14 Last Admin: 12/02/18 16:52 Dose: 999 mls/hr Sodium Chloride (Normal Saline) 1,000 mls @ 250 mls/hr IV ASDIRECTED [facility] Last Admin: 12/03/18 11:13 Dose: 250 mls/hr Sodium Chloride (Normal Saline) 1,000 mls @ 999 mls/hr IV ONETIME ONE Stop: 12/02/18 22:45 Last Admin: 12/03/18 00:14 Dose: 999 mls/hr Sodium Chloride (Normal Saline) 1,000 mls @ 999 mls/hr IV ONETIME ONE Stop: 12/02/18 22:57 Last Admin: 12/03/18 01:34 Dose: 999 mls/hr - Exam General: Alert, Oriented, Cooperative, No Acute Distress Lungs: Clear to Auscultation, Normal Respiratory Effort Cardiovascular: Regular Rate, Regular Rhythm, No Murmurs GI/Abdominal Exam: Normal Bowel Sounds, Soft, Non-Tender Back Exam: Normal Inspection, Full Range of Motion Extremities: Normal Inspection, Normal Range of Motion, Other (puffiness noted from IVFs, to abdomen and legs) Neurological: No New Focal Deficit Psy/Mental Status: Alert, Normal Affect, Normal Mood - Problem List & Annotations (1) Rhabdomyolysis SNOMED Code(s): 842809275 Code(s): M62.82 - RHABDOMYOLYSIS Status: Acute Current Visit: Yes (2) UTI (urinary tract infection) SNOMED Code(s): 35509357 Code(s): N39.0 - URINARY TRACT INFECTION, SITE NOT SPECIFIED Status: Suspected Current Visit: Yes Qualifiers: Urinary tract infection type: acute cystitis Hematuria presence: with hematuria Qualified Code(s): N30.01 - Acute cystitis with hematuria (3) Influenza A SNOMED Code(s): 260619276 Code(s): J10.1 - FLU DUE TO OTH IDENT INFLUENZA VIRUS W OTH RESP MANIFEST Status: Acute Current Visit: Yes (4) Transaminitis SNOMED Code(s): 978592203, 100738977 Code(s): R74.0 - NONSPEC ELEV OF LEVELS OF TRANSAMNS & LACTIC ACID DEHYDRGNSE Status: Acute Current Visit: Yes (5) Dehydration SNOMED Code(s): 92391552 Code(s): E86.0 - DEHYDRATION Status: Acute Current Visit: No (6) KARENA (acute kidney injury) SNOMED Code(s): 51667612 Code(s): N17.9 - ACUTE KIDNEY FAILURE, UNSPECIFIED Status: Acute Current Visit: Yes - Problem List Review Problem List Initiated/Reviewed/Updated: Yes - My Orders Last 24 Hours: My Active Orders 12/03/18 10:00 Sodium Chloride 0.9% [Normal Saline] 1,000 ml IV ASDIRECTED 12/05/18 05:11 CBC WITH AUTO DIFF [HEME] AM COMPREHENSIVE METABOLIC PN,CMP [CHEM] AM CPK [CREATINE KINASE,CK] [CHEM] AM 12/06/18 05:11 CBC WITH AUTO DIFF [HEME] AM COMPREHENSIVE METABOLIC PN,CMP [CHEM] AM CPK [CREATINE KINASE,CK] [CHEM] AM - Plan Plan:: 33 yo male admitted for Rhabdomyolysis, Influenza and possible UTI. 1. Rhabdomyolysis: CPK 141,400, will give 1 L bolus now and Continue to with NS at 250 ml/hr. KARENA resolved, transaminitis continues to improve. and patient continues to have good urine output. Strict I/O 2. Influenza A: Improving, continue with Tamiflu 3. UTI: suspected, UC pending. Continue with Rocephin. VTE prophylaxis: SCDs Dispo: 2-4 days pending improvement.
[2018-12-04] MEDS ORDERED: Sodium Chloride 0.9% 1,000 ML IV SCH (08:45)
[2018-12-04] MEDS: Oseltamivir 75 MG Cap PO SCH (09:03)
[2018-12-04] MEDS ORDERED: Furosemide 40 MG/4 ML VIAL IVPUSH ONE (10:11)
[2018-12-04] MEDS ORDERED: Furosemide 20 MG/2 ML VIAL IVPUSH ONE (18:25)
[2018-12-05] MEDS: Sodium Chloride 0.9% 1,000 ML IV SCH ×5 (01:30→22:49)
[2018-12-05 06:17] LABS: CHLORIDE,CL 109 mmol/L (98-107); SODIUM,NA 140 mmol/L (136-148)
--- NOTE | 2018-12-05 08:02 | PCM.PN ---
- General Info Date of Service: 12/05/18 Admission Dx/Problem (Free Text): Admission Diagnosis/Problem Admission Diagnosis/Problem Rhabdomyolysis Subjective Update: Doing well today, up in hallway this morning walking. NO pain. Complains of swelling to legs and scrotum. Functional Status: Reports: Pain Controlled, Tolerating Diet, Ambulating, Urinating - Review of Systems General: Reports: No Symptoms. Denies: Fever, Weakness, Fatigue Pulmonary: Reports: No Symptoms. Denies: Shortness of Breath Cardiovascular: Reports: Edema (scrotal and lower leg). Denies: Chest Pain Gastrointestinal: Reports: No Symptoms. Denies: Abdominal Pain, Nausea, Vomiting Genitourinary: Reports: No Symptoms. Denies: Dysuria, Frequency, Burning Musculoskeletal: Reports: No Symptoms Skin: Reports: No Symptoms Neurological: Reports: No Symptoms Psychiatric: Reports: No Symptoms - Patient Data Vitals - Most Recent: Last Vital Signs Temp 97.5 F 12/05/18 04:00 Pulse 89 12/05/18 04:00 Resp 16 12/05/18 04:00 BP 115/59 L 12/05/18 04:00 Pulse Ox 98 12/05/18 04:00 Weight - Most Recent: 96.479 kg I&O - Last 24 Hours: Intake & Output 12/04/18 12/05/18 12/05/18 22:59 06:59 14:59 Intake Total 4082 3091 Output Total 775 1875 Balance 3307 1216 Lab Results Last 24 Hours: Laboratory Results - last 24 hr 12/05/18 12/05/18 Range/Units 05:20 05:20 WBC 7.57 (4.0-11.0) K/uL RBC 4.28 L (4.50-5.90) M/uL Hgb 12.8 L (13.0-17.0) g/dL Hct 37.1 L (38.0-50.0) % MCV 86.7 (80.0-98.0) fL MCH 29.9 (27.0-32.0) pg MCHC 34.5 (31.0-37.0) g/dL RDW Std Deviation 40.8 (28.0-62.0) fl RDW Coeff of Jannette 13 (11.0-15.0) % Plt Count 236 (150-400) K/uL MPV 10.40 (7.40-12.00) fL Neut % (Auto) 75.5 (48.0-80.0) % Lymph % (Auto) 12.5 L (16.0-40.0) % [place] % (Auto) 10.6 (0.0-15.0) % Eos % (Auto) 1.1 (0.0-7.0) % Baso % (Auto) 0.3 (0.0-1.5) % Neut # (Auto) 5.7 (1.4-5.7) K/uL Lymph # (Auto) 1.0 (0.6-2.4) K/uL [place] # (Auto) 0.8 (0.0-0.8) K/uL Eos # (Auto) 0.1 (0.0-0.7) K/uL Baso # (Auto) 0.0 (0.0-0.1) K/uL Nucleated RBC % 0.0 /100WBC Nucleated RBCs # 0 K/uL Sodium 140 (136-148) mmol/L Potassium 4.3 (3.5-5.1) mmol/L Chloride 109 H (98-107) mmol/L Carbon Dioxide 25.2 (21.0-32.0) mmol/L BUN 23 H (7.0-18.0) mg/dL Creatinine 1.4 H (0.8-1.3) mg/dL Est Cr Clr Drug Dosing 76.20 mL/min Estimated GFR (MDRD) > 60.0 ml/min Glucose 92 (74-106) mg/dL Calcium 8.3 L (8.5-10.1) mg/dL Total Bilirubin 0.4 (0.2-1.0) mg/dL AST 999 H (15-37) IU/L ALT 575 H (14-63) IU/L Alkaline Phosphatase 54 (46-116) U/L Creatine Kinase 32989 H (26-308) U/L Total Protein 4.6 L (6.4-8.2) g/dL Albumin 1.5 L (3.4-5.0) g/dL Globulin 3.1 (2.6-4.0) g/dL Albumin/Globulin Ratio 0.5 L (0.9-1.6) [facility] Results Last 24 Hours: Microbiology 12/02/18 15:55 Urine Culture - Final Urine, Clean Catch No Growth Med Orders - Current: Current Medications Sodium Chloride (Normal Saline) 1,000 mls @ 250 mls/hr IV ASDIRECTED [facility] Last Admin: 12/05/18 05:34 Dose: 250 mls/hr Morphine Sulfate (Morphine) 2 mg IVPUSH Q4H PRN PRN Reason: Pain Oseltamivir Phosphate (Tamiflu) 75 mg PO DAILY [facility] Last Admin: 12/04/18 09:03 Dose: 75 mg Discontinued Medications Furosemide (Lasix) 20 mg IVPUSH NOW ONE Stop: 12/04/18 10:12 Last Admin: 12/04/18 11:16 Dose: 20 mg Furosemide (Lasix) 20 mg IVPUSH NOW ONE Stop: 12/04/18 18:26 Last Admin: 12/04/18 19:11 Dose: 20 mg Sodium Chloride (Normal Saline) 2,000 mls @ 999 mls/hr IV STAT ONE Stop: 12/02/18 18:14 Last Admin: 12/02/18 16:52 Dose: 999 mls/hr Sodium Chloride (Normal Saline) 1,000 mls @ 250 mls/hr IV ASDIRECTED [facility] Last Admin: 12/03/18 11:13 Dose: 250 mls/hr Sodium Chloride (Normal Saline) 1,000 mls @ 999 mls/hr IV ONETIME ONE Stop: 12/02/18 22:45 Last Admin: 12/03/18 00:14 Dose: 999 mls/hr Sodium Chloride (Normal Saline) 1,000 mls @ 999 mls/hr IV ONETIME ONE Stop: 12/02/18 22:57 Last Admin: 12/03/18 01:34 Dose: 999 mls/hr Ceftriaxone Sodium 1 gm/ (Sodium Chloride) 50 mls @ 100 mls/hr IV Q24H [facility] Last Admin: 12/03/18 22:02 Dose: 100 mls/hr Sodium Chloride (Normal Saline) 1,000 mls @ 999 mls/hr IV ASDIRECTED [facility] Stop: 12/04/18 11:01 Last Admin: 12/03/18 13:03 Dose: 999 mls/hr Sodium Chloride (Normal Saline) 1,000 mls @ 999 mls/hr IV ASDIRECTED [facility] Stop: 12/04/18 09:46 Last Admin: 12/04/18 09:13 Dose: 999 mls/hr - Exam General: Alert, Oriented, Cooperative, No Acute Distress Neck: Supple Lungs: Clear to Auscultation, Normal Respiratory Effort Cardiovascular: Regular Rate, Regular Rhythm GI/Abdominal Exam: Normal Bowel Sounds, Soft, Non-Tender (Male) Exam: Other (scrotcal and penile edema.) Extremities: Normal Inspection, Normal Range of Motion, Non-Tender, Pedal Edema Neurological: No New Focal Deficit Psy/Mental Status: Alert, Normal Affect, Normal Mood - Problem List & Annotations (1) Rhabdomyolysis SNOMED Code(s): 073814908 Code(s): M62.82 - RHABDOMYOLYSIS Status: Acute Current Visit: Yes (2) UTI (urinary tract infection) SNOMED Code(s): 61640483 Code(s): N39.0 - URINARY TRACT INFECTION, SITE NOT SPECIFIED Status: Ruled- out Current Visit: Yes Qualifiers: Urinary tract infection type: acute cystitis Hematuria presence: with hematuria Qualified Code(s): N30.01 - Acute cystitis with hematuria (3) Influenza A SNOMED Code(s): 806713534 Code(s): J10.1 - FLU DUE TO OTH IDENT INFLUENZA VIRUS W OTH RESP MANIFEST Status: Acute Current Visit: Yes (4) Transaminitis SNOMED Code(s): 469840918, 812324506 Code(s): R74.0 - NONSPEC ELEV OF LEVELS OF TRANSAMNS & LACTIC ACID DEHYDRGNSE Status: Acute Current Visit: Yes (5) Dehydration SNOMED Code(s): 28946035 Code(s): E86.0 - DEHYDRATION Status: Acute Current Visit: No (6) KARENA (acute kidney injury) SNOMED Code(s): 29653380 Code(s): N17.9 - ACUTE KIDNEY FAILURE, UNSPECIFIED Status: Acute Current Visit: Yes - Problem List Review Problem List Initiated/Reviewed/Updated: Yes - My Orders Last 24 Hours: My Active Orders 12/06/18 05:11 CBC WITH AUTO DIFF [HEME] AM COMPREHENSIVE METABOLIC PN,CMP [CHEM] AM CPK [CREATINE KINASE,CK] [CHEM] AM - Plan Plan:: 33 yo male admitted for Rhabdomyolysis, Influenza and possible UTI. 1. Rhabdomyolysis: CPK 84,000Continue to with NS at 200 ml/hr. Transaminitis continues to improve. and patient continues to have good urine output. Strict I/ O Giving Lasix 40 mg IV today to help with fluid retention. MOnitor Renal function. 2. Influenza A: Improving, continue with Tamiflu 3. UTI: Ruled out, UC no growth. Rocephin discontinued. VTE prophylaxis: SCDs Dispo: 2-4 days pending improvement.
[2018-12-05] MEDS: Oseltamivir 75 MG Cap PO SCH (09:18)
[2018-12-05] MEDS ORDERED: Furosemide 40 MG/4 ML VIAL IVPUSH ONE (09:54)
[2018-12-06] MEDS: Sodium Chloride 0.9% 1,000 ML IV SCH ×4 (04:11→19:25)
[2018-12-06 06:27] LABS: CHLORIDE,CL 108 mmol/L (98-107); SODIUM,NA 139 mmol/L (136-148)
[2018-12-06] MEDS: Oseltamivir 75 MG Cap PO SCH (09:01)
--- NOTE | 2018-12-06 09:05 | PCM.PN ---
- General Info Date of Service: 12/06/18 Admission Dx/Problem (Free Text): Admission Diagnosis/Problem Admission Diagnosis/Problem Rhabdomyolysis Subjective Update: Continues to feel improved. No chest pain or SOB. Edema continues, mild improvement. Functional Status: Reports: Pain Controlled, Tolerating Diet, Ambulating, Urinating - Review of Systems General: Reports: No Symptoms. Denies: Fever, Weakness, Fatigue, Malaise HEENT: Reports: Sinus Congestion. Denies: Sore Throat, Visual Changes Pulmonary: Reports: No Symptoms. Denies: Shortness of Breath, Pleuritic Chest Pain, Cough, Sputum Cardiovascular: Reports: Edema (scrotum and thighs). Denies: Chest Pain, Palpitations, Orthopnea Gastrointestinal: Reports: No Symptoms. Denies: Abdominal Pain, Nausea, Other Genitourinary: Reports: No Symptoms. Denies: Dysuria, Frequency, Burning Musculoskeletal: Reports: No Symptoms Skin: Reports: No Symptoms Neurological: Reports: No Symptoms Psychiatric: Reports: No Symptoms - Patient Data Vitals - Most Recent: Last Vital Signs Temp 97.6 F 12/06/18 04:00 Pulse 87 12/06/18 04:00 Resp 16 12/06/18 04:00 BP 110/63 12/06/18 04:00 Pulse Ox 98 12/06/18 04:00 Weight - Most Recent: 98.248 kg I&O - Last 24 Hours: Intake & Output 12/05/18 12/06/18 12/06/18 22:59 06:59 14:59 Intake Total 3769 3582 Output Total 8593 1150 Balance 1269 2432 Lab Results Last 24 Hours: Laboratory Results - last 24 hr 12/06/18 12/06/18 Range/Units 05:40 05:40 WBC 6.99 (4.0-11.0) K/uL RBC 4.44 L (4.50-5.90) M/uL Hgb 13.1 (13.0-17.0) g/dL Hct 38.3 (38.0-50.0) % MCV 86.3 (80.0-98.0) fL MCH 29.5 (27.0-32.0) pg MCHC 34.2 (31.0-37.0) g/dL RDW Std Deviation 40.5 (28.0-62.0) fl RDW Coeff of Jannette 13 (11.0-15.0) % Plt Count 256 (150-400) K/uL MPV 10.30 (7.40-12.00) fL Neut % (Auto) 75.5 (48.0-80.0) % Lymph % (Auto) 13.0 L (16.0-40.0) % [place] % (Auto) 10.0 (0.0-15.0) % Eos % (Auto) 1.1 (0.0-7.0) % Baso % (Auto) 0.4 (0.0-1.5) % Neut # (Auto) 5.3 (1.4-5.7) K/uL Lymph # (Auto) 0.9 (0.6-2.4) K/uL [place] # (Auto) 0.7 (0.0-0.8) K/uL Eos # (Auto) 0.1 (0.0-0.7) K/uL Baso # (Auto) 0.0 (0.0-0.1) K/uL Nucleated RBC % 0.0 /100WBC Nucleated RBCs # 0 K/uL Sodium 139 (136-148) mmol/L Potassium 3.7 (3.5-5.1) mmol/L Chloride 108 H (98-107) mmol/L Carbon Dioxide 26.8 (21.0-32.0) mmol/L BUN 25 H (7.0-18.0) mg/dL Creatinine 1.2 (0.8-1.3) mg/dL Est Cr Clr Drug Dosing 88.89 mL/min Estimated GFR (MDRD) > 60.0 ml/min Glucose 102 (74-106) mg/dL Calcium 8.3 L (8.5-10.1) mg/dL Total Bilirubin 0.3 (0.2-1.0) mg/dL AST 774 H (15-37) IU/L ALT 548 H (14-63) IU/L Alkaline Phosphatase 61 (46-116) U/L Creatine Kinase 86343 H (26-308) U/L Total Protein 4.7 L (6.4-8.2) g/dL Albumin 1.6 L (3.4-5.0) g/dL Globulin 3.1 (2.6-4.0) g/dL Albumin/Globulin Ratio 0.5 L (0.9-1.6) Med Orders - Current: Current Medications Sodium Chloride (Normal Saline) 1,000 mls @ 200 mls/hr IV ASDIRECTED [facility] Last Admin: 12/06/18 09:01 Dose: 200 mls/hr Morphine Sulfate (Morphine) 2 mg IVPUSH Q4H PRN PRN Reason: Pain Oseltamivir Phosphate (Tamiflu) 75 mg PO DAILY [facility] Last Admin: 12/06/18 09:01 Dose: 75 mg Discontinued Medications Furosemide (Lasix) 20 mg IVPUSH NOW ONE Stop: 12/04/18 10:12 Last Admin: 12/04/18 11:16 Dose: 20 mg Furosemide (Lasix) 20 mg IVPUSH NOW ONE Stop: 12/04/18 18:26 Last Admin: 12/04/18 19:11 Dose: 20 mg Furosemide (Lasix) 40 mg IVPUSH NOW ONE Stop: 12/05/18 09:55 Last Admin: 12/05/18 11:29 Dose: 40 mg Sodium Chloride (Normal Saline) 2,000 mls @ 999 mls/hr IV STAT ONE Stop: 12/02/18 18:14 Last Admin: 12/02/18 16:52 Dose: 999 mls/hr Sodium Chloride (Normal Saline) 1,000 mls @ 250 mls/hr IV ASDIRECTED [facility] Last Admin: 12/03/18 11:13 Dose: 250 mls/hr Sodium Chloride (Normal Saline) 1,000 mls @ 999 mls/hr IV ONETIME ONE Stop: 12/02/18 22:45 Last Admin: 12/03/18 00:14 Dose: 999 mls/hr Sodium Chloride (Normal Saline) 1,000 mls @ 999 mls/hr IV ONETIME ONE Stop: 12/02/18 22:57 Last Admin: 12/03/18 01:34 Dose: 999 mls/hr Sodium Chloride (Normal Saline) 1,000 mls @ 250 mls/hr IV ASDIRECTED [facility] Last Admin: 12/05/18 05:34 Dose: 250 mls/hr Ceftriaxone Sodium 1 gm/ (Sodium Chloride) 50 mls @ 100 mls/hr IV Q24H [facility] Last Admin: 12/03/18 22:02 Dose: 100 mls/hr Sodium Chloride (Normal Saline) 1,000 mls @ 999 mls/hr IV ASDIRECTED [facility] Stop: 12/04/18 11:01 Last Admin: 12/03/18 13:03 Dose: 999 mls/hr Sodium Chloride (Normal Saline) 1,000 mls @ 999 mls/hr IV ASDIRECTED [facility] Stop: 12/04/18 09:46 Last Admin: 12/04/18 09:13 Dose: 999 mls/hr - Exam General: Alert, Oriented, Cooperative, No Acute Distress Lungs: Clear to Auscultation, Normal Respiratory Effort Cardiovascular: Regular Rate, Regular Rhythm GI/Abdominal Exam: Normal Bowel Sounds, Soft, Non-Tender, No Mass (Male) Exam: Scrotal Swelling (scant improvement.) Extremities: Normal Inspection, Normal Range of Motion, Pedal Edema Neurological: No New Focal Deficit Psy/Mental Status: Alert, Normal Affect, Normal Mood - Problem List & Annotations (1) Rhabdomyolysis SNOMED Code(s): 378616625 Code(s): M62.82 - RHABDOMYOLYSIS Status: Acute Current Visit: Yes (2) UTI (urinary tract infection) SNOMED Code(s): 79877400 Code(s): N39.0 - URINARY TRACT INFECTION, SITE NOT SPECIFIED Status: Ruled- out Current Visit: Yes Qualifiers: Urinary tract infection type: acute cystitis Hematuria presence: with hematuria Qualified Code(s): N30.01 - Acute cystitis with hematuria (3) Influenza A SNOMED Code(s): 910390373 Code(s): J10.1 - FLU DUE TO OTH IDENT INFLUENZA VIRUS W OTH RESP MANIFEST Status: Acute Current Visit: Yes (4) Transaminitis SNOMED Code(s): 769946444, 325059502 Code(s): R74.0 - NONSPEC ELEV OF LEVELS OF TRANSAMNS & LACTIC ACID DEHYDRGNSE Status: Acute Current Visit: Yes (5) Dehydration SNOMED Code(s): 62634535 Code(s): E86.0 - DEHYDRATION Status: Acute Current Visit: No (6) KARENA (acute kidney injury) SNOMED Code(s): 14460386 Code(s): N17.9 - ACUTE KIDNEY FAILURE, UNSPECIFIED Status: Resolved Current Visit: Yes - Problem List Review Problem List Initiated/Reviewed/Updated: Yes - My Orders Last 24 Hours: My Active Orders 12/05/18 09:54 Sodium Chloride 0.9% [Normal Saline] 1,000 ml IV ASDIRECTED - Plan Plan:: 33 yo male admitted for Rhabdomyolysis, Influenza and possible UTI. 1. Rhabdomyolysis: CPK 29,000 today. Continue to with NS at 200 ml/hr. Transaminitis continues to improve. and patient continues to have good urine output. Strict I/O Giving Lasix 40 mg IV today to help with fluid retention. Monitor Renal function. Elevating legs and scrotum to help with edema. 2. Influenza A: Improving, continue with Tamiflu VTE prophylaxis: SCDs Dispo: Possible home in next day or so as CPK continues to improve.
[2018-12-06] MEDS ORDERED: Furosemide 40 MG/4 ML VIAL IVPUSH ONE (09:11)
[2018-12-07] MEDS: Sodium Chloride 0.9% 1,000 ML IV SCH ×5 (00:22→21:59)
[2018-12-07 07:00] LABS: CHLORIDE,CL 109 mmol/L (98-107); SODIUM,NA 141 mmol/L (136-148)
[2018-12-07] MEDS: Oseltamivir 75 MG Cap PO SCH (08:43)
--- NOTE | 2018-12-07 15:03 | PCM.PN ---
- General Info Date of Service: 12/07/18 Admission Dx/Problem (Free Text): Admission Diagnosis/Problem Admission Diagnosis/Problem Rhabdomyolysis Subjective Update: Follow-up rhabdomyolysis Patient doesn't have any new complaints. Feels fine. Urine color becomes to light from cola color. Denies fever, chills, nausea, vomiting. Body ache much improved no overnight events No overnight events - Review of Systems General: Reports: Other (Before to subjective update) HEENT: Reports: No Symptoms Pulmonary: Reports: No Symptoms Cardiovascular: Reports: No Symptoms Gastrointestinal: Reports: No Symptoms Musculoskeletal: Reports: No Symptoms Skin: Reports: No Symptoms Neurological: Reports: No Symptoms Psychiatric: Reports: No Symptoms - Patient Data Vitals - Most Recent: Last Vital Signs Temp 36.6 C 12/07/18 12:00 Pulse 77 12/07/18 12:00 Resp 22 H 12/07/18 12:00 BP 116/62 12/07/18 12:00 Pulse Ox 95 12/07/18 12:00 Weight - Most Recent: 100.743 kg I&O - Last 24 Hours: Intake & Output 12/06/18 12/07/18 12/07/18 22:59 06:59 14:59 Intake Total 6787 3056 Output Total 2575 1375 Balance 4212 1681 Lab Results Last 24 Hours: Laboratory Results - last 24 hr 12/07/18 Range/Units 06:24 Sodium 141 (136-148) mmol/L Potassium 3.5 (3.5-5.1) mmol/L Chloride 109 H (98-107) mmol/L Carbon Dioxide 27.0 (21.0-32.0) mmol/L BUN 22 H (7.0-18.0) mg/dL Creatinine 1.2 (0.8-1.3) mg/dL Est Cr Clr Drug Dosing 88.89 mL/min Estimated GFR (MDRD) > 60.0 ml/min Glucose 99 (74-106) mg/dL Calcium 8.3 L (8.5-10.1) mg/dL Total Bilirubin 0.3 (0.2-1.0) mg/dL AST 489 H (15-37) IU/L ALT 406 H (14-63) IU/L Alkaline Phosphatase 53 (46-116) U/L Creatine Kinase 70010 H (26-308) U/L Total Protein 4.3 L (6.4-8.2) g/dL Albumin 1.5 L (3.4-5.0) g/dL Globulin 2.8 (2.6-4.0) g/dL Albumin/Globulin Ratio 0.5 L (0.9-1.6) Med Orders - Current: Current Medications Furosemide (Lasix) 40 mg IVPUSH NOW ONE Stop: 12/07/18 15:16 Sodium Chloride (Normal Saline) 1,000 mls @ 200 mls/hr IV ASDIRECTED [facility] Last Admin: 12/07/18 11:30 Dose: 200 mls/hr Morphine Sulfate (Morphine) 2 mg IVPUSH Q4H PRN PRN Reason: Pain Oseltamivir Phosphate (Tamiflu) 75 mg PO DAILY [facility] Last Admin: 12/07/18 08:43 Dose: 75 mg Discontinued Medications Furosemide (Lasix) 20 mg IVPUSH NOW ONE Stop: 12/04/18 10:12 Last Admin: 12/04/18 11:16 Dose: 20 mg Furosemide (Lasix) 20 mg IVPUSH NOW ONE Stop: 12/04/18 18:26 Last Admin: 12/04/18 19:11 Dose: 20 mg Furosemide (Lasix) 40 mg IVPUSH NOW ONE Stop: 12/05/18 09:55 Last Admin: 12/05/18 11:29 Dose: 40 mg Furosemide (Lasix) 40 mg IVPUSH NOW ONE Stop: 12/06/18 09:12 Last Admin: 12/06/18 11:28 Dose: 40 mg Sodium Chloride (Normal Saline) 2,000 mls @ 999 mls/hr IV STAT ONE Stop: 12/02/18 18:14 Last Admin: 12/02/18 16:52 Dose: 999 mls/hr Sodium Chloride (Normal Saline) 1,000 mls @ 250 mls/hr IV ASDIRECTED [facility] Last Admin: 12/03/18 11:13 Dose: 250 mls/hr Sodium Chloride (Normal Saline) 1,000 mls @ 999 mls/hr IV ONETIME ONE Stop: 12/02/18 22:45 Last Admin: 12/03/18 00:14 Dose: 999 mls/hr Sodium Chloride (Normal Saline) 1,000 mls @ 999 mls/hr IV ONETIME ONE Stop: 12/02/18 22:57 Last Admin: 12/03/18 01:34 Dose: 999 mls/hr Sodium Chloride (Normal Saline) 1,000 mls @ 250 mls/hr IV ASDIRECTED [facility] Last Admin: 12/05/18 05:34 Dose: 250 mls/hr Ceftriaxone Sodium 1 gm/ (Sodium Chloride) 50 mls @ 100 mls/hr IV Q24H [facility] Last Admin: 12/03/18 22:02 Dose: 100 mls/hr Sodium Chloride (Normal Saline) 1,000 mls @ 999 mls/hr IV ASDIRECTED [facility] Stop: 12/04/18 11:01 Last Admin: 12/03/18 13:03 Dose: 999 mls/hr Sodium Chloride (Normal Saline) 1,000 mls @ 999 mls/hr IV ASDIRECTED [facility] Stop: 12/04/18 09:46 Last Admin: 12/04/18 09:13 Dose: 999 mls/hr - Exam Quality Assessment: DVT Prophylaxis General: Alert, Oriented, Cooperative, No Acute Distress HEENT: Pupils Equal, Pupils Reactive, EOMI Neck: Supple, Trachea Midline, No JVD Lungs: Clear to Auscultation, Normal Respiratory Effort Cardiovascular: Regular Rate, Regular Rhythm, No Murmurs GI/Abdominal Exam: Normal Bowel Sounds, Soft, Non-Tender Extremities: Normal Inspection, Normal Range of Motion, Non-Tender, No Pedal Edema Skin: Warm, Dry Neurological: No New Focal Deficit, Strength Equal Bilateral, Reflexes Equal Bilateral Psy/Mental Status: Alert, Normal Affect - Problem List Review Problem List Initiated/Reviewed/Updated: Yes - My Orders Last 24 Hours: My Active Orders 12/07/18 15:15 Furosemide [Lasix] 40 mg IVPUSH NOW ONE - Plan Plan:: 33 yo male admitted for Rhabdomyolysis, Influenza A positive and possible UTI. 1. Rhabdomyolysis: CPK trending down. Continue to with NS at 200 ml/hr. Have good urine output. Lasix 40 mg IV today Monitor Renal function. Elevating legs and scrotum to help with edema. 2. Influenza A: Continue with Tamiflu VTE prophylaxis: SCDs Dispo: Possible home in next day or so as CPK continues to improve.
[2018-12-07] MEDS ORDERED: Furosemide 40 MG/4 ML VIAL IVPUSH ONE (15:15)
[2018-12-08] MEDS: Sodium Chloride 0.9% 1,000 ML IV SCH ×3 (03:23→20:19)
[2018-12-08 06:51] LABS: CHLORIDE,CL 108 mmol/L (98-107); SODIUM,NA 139 mmol/L (136-148)
[2018-12-08] MEDS ORDERED: Potassium Chloride 20 MEQ Tab.ER PO ONE (08:04)
[2018-12-08] MEDS: Oseltamivir 75 MG Cap PO SCH (08:17)
[2018-12-08] MEDS ORDERED: Furosemide 40 MG/4 ML VIAL IVPUSH ONE (09:06)
--- NOTE | 2018-12-08 09:45 | PCM.PN ---
- General Info Date of Service: 12/08/18 Subjective Update: Has no complaints today. Denies shortness of breath. Pain is under control. - Review of Systems General: Reports: Other (see hpi) - Patient Data Vitals - Most Recent: Last Vital Signs Temp 36.4 C 12/08/18 07:10 Pulse 77 12/08/18 07:10 Resp 16 12/08/18 07:10 BP 113/66 12/08/18 07:10 Pulse Ox 96 12/08/18 07:10 Weight - Most Recent: 100.5 kg I&O - Last 24 Hours: Intake & Output 12/07/18 12/08/18 12/08/18 22:59 06:59 14:59 Intake Total 3008 2048 Output Total 2500 Balance 508 2048 Lab Results Last 24 Hours: Laboratory Results - last 24 hr 12/08/18 Range/Units 06:07 Sodium 139 (136-148) mmol/L Potassium 3.4 L (3.5-5.1) mmol/L Chloride 108 H (98-107) mmol/L Carbon Dioxide 26.1 (21.0-32.0) mmol/L BUN 20 H (7.0-18.0) mg/dL Creatinine 1.2 (0.8-1.3) mg/dL Est Cr Clr Drug Dosing 88.89 mL/min Estimated GFR (MDRD) > 60.0 ml/min Glucose 98 (74-106) mg/dL Calcium 8.3 L (8.5-10.1) mg/dL Total Bilirubin 0.3 (0.2-1.0) mg/dL AST 520 H (15-37) IU/L ALT 485 H (14-63) IU/L Alkaline Phosphatase 61 (46-116) U/L Creatine Kinase 81983 H (26-308) U/L Total Protein 4.4 L (6.4-8.2) g/dL Albumin 1.6 L (3.4-5.0) g/dL Globulin 2.8 (2.6-4.0) g/dL Albumin/Globulin Ratio 0.6 L (0.9-1.6) Med Orders - Current: Current Medications Sodium Chloride (Normal Saline) 1,000 mls @ 200 mls/hr IV ASDIRECTED [facility] Last Admin: 12/08/18 08:16 Dose: 200 mls/hr Morphine Sulfate (Morphine) 2 mg IVPUSH Q4H PRN PRN Reason: Pain Discontinued Medications Furosemide (Lasix) 20 mg IVPUSH NOW ONE Stop: 12/04/18 10:12 Last Admin: 12/04/18 11:16 Dose: 20 mg Furosemide (Lasix) 20 mg IVPUSH NOW ONE Stop: 12/04/18 18:26 Last Admin: 12/04/18 19:11 Dose: 20 mg Furosemide (Lasix) 40 mg IVPUSH NOW ONE Stop: 12/05/18 09:55 Last Admin: 12/05/18 11:29 Dose: 40 mg Furosemide (Lasix) 40 mg IVPUSH NOW ONE Stop: 12/06/18 09:12 Last Admin: 12/06/18 11:28 Dose: 40 mg Furosemide (Lasix) 40 mg IVPUSH NOW ONE Stop: 12/07/18 15:16 Last Admin: 12/07/18 15:11 Dose: 40 mg Furosemide (Lasix) 40 mg IVPUSH NOW ONE Stop: 12/08/18 09:07 Last Admin: 12/08/18 09:19 Dose: 40 mg Sodium Chloride (Normal Saline) 2,000 mls @ 999 mls/hr IV STAT ONE Stop: 12/02/18 18:14 Last Admin: 12/02/18 16:52 Dose: 999 mls/hr Sodium Chloride (Normal Saline) 1,000 mls @ 250 mls/hr IV ASDIRECTED [facility] Last Admin: 12/03/18 11:13 Dose: 250 mls/hr Sodium Chloride (Normal Saline) 1,000 mls @ 999 mls/hr IV ONETIME ONE Stop: 12/02/18 22:45 Last Admin: 12/03/18 00:14 Dose: 999 mls/hr Sodium Chloride (Normal Saline) 1,000 mls @ 999 mls/hr IV ONETIME ONE Stop: 12/02/18 22:57 Last Admin: 12/03/18 01:34 Dose: 999 mls/hr Sodium Chloride (Normal Saline) 1,000 mls @ 250 mls/hr IV ASDIRECTED [facility] Last Admin: 12/05/18 05:34 Dose: 250 mls/hr Ceftriaxone Sodium 1 gm/ (Sodium Chloride) 50 mls @ 100 mls/hr IV Q24H [facility] Last Admin: 12/03/18 22:02 Dose: 100 mls/hr Sodium Chloride (Normal Saline) 1,000 mls @ 999 mls/hr IV ASDIRECTED [facility] Stop: 12/04/18 11:01 Last Admin: 12/03/18 13:03 Dose: 999 mls/hr Sodium Chloride (Normal Saline) 1,000 mls @ 999 mls/hr IV ASDIRECTED [facility] Stop: 12/04/18 09:46 Last Admin: 12/04/18 09:13 Dose: 999 mls/hr Oseltamivir Phosphate (Tamiflu) 75 mg PO DAILY [facility] Last Admin: 12/08/18 08:17 Dose: 75 mg Potassium Chloride (Klor-Con M20) 20 meq PO ONETIME ONE Stop: 12/08/18 08:05 Last Admin: 12/08/18 08:16 Dose: 20 meq - Exam General: Alert, Oriented HEENT: Pupils Equal, Pupils Reactive, EOMI, Mucous Membr. Moist/[place] Neck: Supple Lungs: Clear to Auscultation, Normal Respiratory Effort Cardiovascular: Regular Rate, Regular Rhythm GI/Abdominal Exam: Normal Bowel Sounds, Soft, Non-Tender, No Organomegaly, No Distention, No Abnormal Bruit, No Mass, Pelvis Stable Extremities: Normal Inspection, Normal Range of Motion, Non-Tender, Normal Capillary Refill, Other (trace edema distally) Skin: Warm, Dry, Intact Psy/Mental Status: Alert, Normal Affect, Normal Mood - Problem List Review Problem List Initiated/Reviewed/Updated: Yes - Plan Plan:: Assessment: #1. Rhabdomyolysis #2. Influenza - treatment complete Plan: #1. Continue with NS at 200ml/h #2. Lasix 40mg IV x1 #3. CK, BMP tomorrow AM. #4. If his CK continues to drop, will anticipate DC tomorrow. #5. Stop tamiflu today. Can remove respiratory precautions.
[2018-12-09] MEDS: Sodium Chloride 0.9% 1,000 ML IV SCH ×2 (01:07→05:47)
[2018-12-09 06:40] LABS: CHLORIDE,CL 107 mmol/L (98-107); SODIUM,NA 142 mmol/L (136-148)
[2018-12-09] MEDS ORDERED: Potassium Chloride 20 MEQ Tab.ER PO ONE (08:06)
[2018-12-09] MEDS ORDERED: Furosemide 40 MG/4 ML VIAL IVPUSH ONE (08:06)
--- NOTE | 2018-12-09 09:38 | PCM.DCSUM1 ---
Discharge Summary - Hospital Course Brief History: 33 yo male who presents with five day history of fevers, myalgias and cough. He tested positive for influenza A November 28 when he seen in the ED. He presents to the ED again due to worsening symptoms and dark colored urine. He does report some pain on urination. Patient denies any use of over the counter medications. Diagnosis: Stroke: No - Discharge Data Discharge Date: 12/09/18 Discharge Disposition: Home, Self-Care 01 Condition: Good - Discharge Diagnosis/Problem(s) (1) Rhabdomyolysis SNOMED Code(s): 066130752 ICD Code: M62.82 - RHABDOMYOLYSIS Status: Acute Current Visit: Yes (2) UTI (urinary tract infection) SNOMED Code(s): 19508985 ICD Code: N39.0 - URINARY TRACT INFECTION, SITE NOT SPECIFIED Status: Ruled -out Current Visit: Yes Qualifiers: Urinary tract infection type: acute cystitis Hematuria presence: with hematuria Qualified Code(s): N30.01 - Acute cystitis with hematuria (3) Influenza A SNOMED Code(s): 466422314 ICD Code: J10.1 - FLU DUE TO OTH IDENT INFLUENZA VIRUS W OTH RESP MANIFEST Status: Acute Current Visit: Yes (4) Transaminitis SNOMED Code(s): 483017649, 428002328 ICD Code: R74.0 - NONSPEC ELEV OF LEVELS OF TRANSAMNS & LACTIC ACID DEHYDRGNSE Status: Acute Current Visit: Yes (5) Dehydration SNOMED Code(s): 02301319 ICD Code: E86.0 - DEHYDRATION Status: Acute Current Visit: No (6) KARENA (acute kidney injury) SNOMED Code(s): 42625227 ICD Code: N17.9 - ACUTE KIDNEY FAILURE, UNSPECIFIED Status: Resolved Current Visit: Yes - Patient Instructions Diet: Regular Diet as Tolerated, Drink 8-10+ Glasses/Day Activity: No Strenuous Activities (until follow up) Showering/Bathing: May Shower Notify Provider of: Fever, Increased Pain, Swelling and Redness, Drainage, Nausea and/or Vomiting Other/Special Instructions: Elevated scrotum to help with swelling - Discharge Plan *PRESCRIPTION DRUG MONITORING PROGRAM REVIEWED*: Not Applicable *COPY OF PRESCRIPTION DRUG MONITORING REPORT IN PATIENT MAURA: Not Applicable Home Medications: Home Meds . [No Known Home Meds] 11/28/18 [History] Patient Handouts: Rhabdomyolysis, Influenza, Adult, Abra-ia-Pesk Referrals: [facility] [Ordering Only Provider] - Bernard Lomax MD [Resident] - - Discharge Summary/Plan Comment DC Time >30 min.: No Discharge Summary/Plan Comment: Discharge Diagnoses: Rhabdomyolysis Influenza A positive- completed Tamiflu course Gulshan was admitted and treated for rhabdomyolysis with aggressive IVF hydration. His CPK peaked at 141,000 and then slowly decreased to today's level at 10,000. He has been treated with Lasix 40 mg IV daily to help with fluid retention and edema from aggressive IVF hydration. He has had +1 pitting edema to lower legs and scrotal edema. He is voiding well and urine is clear to yellow in color. KARENA has resolved. Transaminitis has continued to improve as well. He did complete Tamiflu course for influenza A. He will be discharged home today. He was encouraged to continue elevating his legs and scrotum to help with edema and also educated it make take a week or two for edema to completely resolve. And continue to hydrate with water. he will have follow up with Dr Lomax in the clinic next week with labwork to insure they are improving. He is to return to ED or clinic if concerns should arise. - General Info Date of Service: 12/09/18 Admission Dx/Problem (Free Text: Admission Diagnosis/Problem Admission Diagnosis/Problem Rhabdomyolysis Subjective Update: Feeling good this morning, No chest pain or abdominal pain. Continues to have edema, but improving. No other concerns. Functional Status: Reports: Pain Controlled, Tolerating Diet, Ambulating, Urinating - Review of Systems General: Reports: No Symptoms. Denies: Fever, Weakness, Fatigue HEENT: Reports: No Symptoms. Denies: Headaches, Sore Throat, Visual Changes Pulmonary: Reports: No Symptoms. Denies: Shortness of Breath Cardiovascular: Reports: Edema (legs and scrotum). Denies: Chest Pain Gastrointestinal: Reports: No Symptoms. Denies: Abdominal Pain, Nausea, Vomiting Genitourinary: Reports: No Symptoms. Denies: Dysuria Musculoskeletal: Reports: No Symptoms Skin: Reports: No Symptoms Neurological: Reports: No Symptoms Psychiatric: Reports: No Symptoms - Patient Data Vitals - Most Recent: Last Vital Signs Temp 97.8 F 12/09/18 09:15 Pulse 71 12/09/18 09:15 Resp 18 12/09/18 09:15 BP 125/72 12/09/18 09:15 Pulse Ox 97 12/09/18 09:15 Weight - Most Recent: 99 kg I&O - Last 24 hours: Intake & Output 12/08/18 12/09/18 12/09/18 22:59 06:59 14:59 Intake Total 3205 Output Total 4150 Balance -945 Lab Results - Last 24 hrs: Laboratory Results - last 24 hr 12/09/18 Range/Units 05:31 Sodium 142 (136-148) mmol/L Potassium 3.5 (3.5-5.1) mmol/L Chloride 107 (98-107) mmol/L Carbon Dioxide 27.2 (21.0-32.0) mmol/L BUN 22 H (7.0-18.0) mg/dL Creatinine 1.2 (0.8-1.3) mg/dL Est Cr Clr Drug Dosing 88.89 mL/min Estimated GFR (MDRD) > 60.0 ml/min Glucose 87 (74-106) mg/dL Calcium 8.1 L (8.5-10.1) mg/dL Total Bilirubin 0.3 (0.2-1.0) mg/dL AST 443 H (15-37) IU/L ALT 456 H (14-63) IU/L Alkaline Phosphatase 61 (46-116) U/L Creatine Kinase 67270 H (26-308) U/L Total Protein 4.5 L (6.4-8.2) g/dL Albumin 1.7 L (3.4-5.0) g/dL Globulin 2.8 (2.6-4.0) g/dL Albumin/Globulin Ratio 0.6 L (0.9-1.6) Med Orders - Current: Current Medications Sodium Chloride (Normal Saline) 1,000 mls @ 200 mls/hr IV ASDIRECTED [facility] Last Admin: 12/09/18 05:47 Dose: 200 mls/hr Morphine Sulfate (Morphine) 2 mg IVPUSH Q4H PRN PRN Reason: Pain Discontinued Medications Furosemide (Lasix) 20 mg IVPUSH NOW ONE Stop: 12/04/18 10:12 Last Admin: 12/04/18 11:16 Dose: 20 mg Furosemide (Lasix) 20 mg IVPUSH NOW ONE Stop: 12/04/18 18:26 Last Admin: 12/04/18 19:11 Dose: 20 mg Furosemide (Lasix) 40 mg IVPUSH NOW ONE Stop: 12/05/18 09:55 Last Admin: 12/05/18 11:29 Dose: 40 mg Furosemide (Lasix) 40 mg IVPUSH NOW ONE Stop: 12/06/18 09:12 Last Admin: 12/06/18 11:28 Dose: 40 mg Furosemide (Lasix) 40 mg IVPUSH NOW ONE Stop: 12/07/18 15:16 Last Admin: 12/07/18 15:11 Dose: 40 mg Furosemide (Lasix) 40 mg IVPUSH NOW ONE Stop: 12/08/18 09:07 Last Admin: 12/08/18 09:19 Dose: 40 mg Furosemide (Lasix) 40 mg IVPUSH NOW ONE Stop: 12/09/18 08:07 Last Admin: 12/09/18 09:03 Dose: 40 mg Sodium Chloride (Normal Saline) 2,000 mls @ 999 mls/hr IV STAT ONE Stop: 12/02/18 18:14 Last Admin: 12/02/18 16:52 Dose: 999 mls/hr Sodium Chloride (Normal Saline) 1,000 mls @ 250 mls/hr IV ASDIRECTED [facility] Last Admin: 12/03/18 11:13 Dose: 250 mls/hr Sodium Chloride (Normal Saline) 1,000 mls @ 999 mls/hr IV ONETIME ONE Stop: 12/02/18 22:45 Last Admin: 12/03/18 00:14 Dose: 999 mls/hr Sodium Chloride (Normal Saline) 1,000 mls @ 999 mls/hr IV ONETIME ONE Stop: 12/02/18 22:57 Last Admin: 12/03/18 01:34 Dose: 999 mls/hr Sodium Chloride (Normal Saline) 1,000 mls @ 250 mls/hr IV ASDIRECTED [facility] Last Admin: 12/05/18 05:34 Dose: 250 mls/hr Ceftriaxone Sodium 1 gm/ (Sodium Chloride) 50 mls @ 100 mls/hr IV Q24H [facility] Last Admin: 12/03/18 22:02 Dose: 100 mls/hr Sodium Chloride (Normal Saline) 1,000 mls @ 999 mls/hr IV ASDIRECTED [facility] Stop: 12/04/18 11:01 Last Admin: 12/03/18 13:03 Dose: 999 mls/hr Sodium Chloride (Normal Saline) 1,000 mls @ 999 mls/hr IV ASDIRECTED [facility] Stop: 12/04/18 09:46 Last Admin: 12/04/18 09:13 Dose: 999 mls/hr Oseltamivir Phosphate (Tamiflu) 75 mg PO DAILY [facility] Last Admin: 12/08/18 08:17 Dose: 75 mg Potassium Chloride (Klor-Con M20) 20 meq PO ONETIME ONE Stop: 12/08/18 08:05 Last Admin: 12/08/18 08:16 Dose: 20 meq Potassium Chloride (Klor-Con M20) 40 meq PO ONETIME ONE Stop: 12/09/18 08:07 Last Admin: 12/09/18 09:03 Dose: 40 meq - Exam General: Reports: Alert, Oriented, Cooperative, No Acute Distress Lungs: Reports: Clear to Auscultation, Normal Respiratory Effort Cardiovascular: Reports: Regular Rate, Regular Rhythm GI/Abdominal Exam: Normal Bowel Sounds, Soft, Non-Tender (Male) Exam: Scrotal Swelling. No: Scrotum Tenderness (L), Scrotum Tenderness (R) Extremities: Normal Inspection, Normal Range of Motion, Pedal Edema (+1 pitting BLE) Neurological: Reports: No New Focal Deficit Psy/Mental Status: Reports: Alert, Normal Affect, Normal Mood
== END 2018-12-09 11:40 | disposition home or self-care (01) | DRG 194 ==
LOC: MW.ED 14:49 → MW.MS 19:39
PROVIDERS: ADMIT Internal Medicine; ATTEND Internal Medicine
DX: J10.1 Influenza due to other identified influenza virus with other respiratory manifestations (principal); M62.82 Rhabdomyolysis; N17.9 Acute kidney failure, unspecified; R74.0 Nonspecific elevation of levels of transaminase and lactic acid dehydrogenase [LDH]; E86.0 Dehydration
CPT/HCPCS: 36415; 80053; 81001; 82550; 85025; 87086; 96360; 96361; 99284-25; A9270-GY; J0696; J1940; J7040; J7050

== ENCOUNTER 2023-07-08 16:02 | Inpatient (IN) | payer SELFPAY ==
[2023-07-08] MEDS ORDERED: Lactated Ringers 1,000 ML IV ONE (16:43)
[2023-07-08] MEDS ORDERED: Sodium Chloride 0.9% 10 ML Syringe FLUSH PRN (16:43)
[2023-07-08] MEDS ORDERED: Sodium Chloride 0.9% 2.5 ML Syringe FLUSH PRN (16:43)
[2023-07-08 18:18] LABS: BILIRUBIN,URINE NEGATIVE (NEGATIVE); GLUCOSE,URINE NEGATIVE (NEGATIVE); KETONES,URINE NEGATIVE (NEGATIVE); LEUKOCYTE ESTERASE,URINE TRACE (NEGATIVE); NITRITE,URINE POSITIVE (NEGATIVE); OCCULT BLOOD,URINE LARGE (NEGATIVE); PH,URINE 5.5 (5.0-8.0); PROTEIN,URINE >=300 mg/dL (NEGATIVE); UROBILINOGEN,URINE 0.2 EU/dL (<2.0)
[2023-07-08 18:18] LABS: BASOPHILS PERCENT AUTO 0.1 % (0.0-1.5); EOSINOPHILS ABSOLUTE AUTO 0.1 K/uL (0.0-0.7); EOSINOPHILS PERCENT AUTO 0.7 % (0.0-7.0); HEMOGLOBIN 16.5 g/dL (13.0-17.0); LYMPHOCYTES ABSOLUTE AUTO 1.2 K/uL (0.6-2.4); LYMPHOCYTES PERCENT AUTO 16.2 % (16.0-40.0); MEAN CORPUSCULAR HGB CONC 35.1 g/dL (31.0-37.0); MEAN CORPUSCULAR VOLUME 85.5 fL (80.0-98.0); MONOCYTES ABSOLUTE AUTO 0.7 K/uL (0.0-0.8); MONOCYTES PERCENT AUTO 9.3 % (0.0-15.0); NEUTROPHILS ABSOLUTE AUTO 5.5 K/uL (1.4-5.7); NEUTROPHILS PERCENT AUTO 73.7 % (48.0-80.0); NRBC ABSOLUTE 0 K/uL; PLATELET COUNT,PLT 222 K/uL (150-400); WHITE BLOOD CELL COUNT,WBC 7.45 K/uL (4.0-11.0)
[2023-07-08 18:22] LABS: APPEARANCE,URINE SLT CLOUDY; COLOR,URINE AMBER
[2023-07-08 18:26] LABS: BACTERIA,URINE RARE (NEGATIVE); EPITHELIAL CELLS,URINE RARE (NONE-FEW); WBC,URINE 0-1 (0-5/HPF)
[2023-07-08 18:27] LABS: AMORPHOUS SEDIMENT,URINE HEAVY (NEGATIVE); FINE GRANULAR CASTS,URINE 0-1 (NEGATIVE); MUCUS,URINE LIGHT (NONE-MOD)
[2023-07-08 19:03] LABS: CORONAVIRUS COVID-19 NAA POSITIVE (NEGATIVE); INFLUENZA A NAA NEGATIVE (NEGATIVE); INFLUENZA B NAA NEGATIVE (NEGATIVE)
[2023-07-08 19:06] LABS: A/G RATIO 0.7 (0.9-1.6); BILIRUBIN TOTAL 0.6 mg/dL (0.2-1.0); CALCIUM 8.9 mg/dL (8.5-10.1); CARBON DIOXIDE,CO2 31.4 mmol/L (21.0-32.0); CREATININE 1.6 mg/dL (0.8-1.3); EST CRCL DRUG DOSING (CG) 70.06 mL/min; PROTEIN TOTAL,TP 7.2 g/dL (6.4-8.2)
[2023-07-08] MEDS ORDERED: Sodium Chloride 0.9% 1,000 ML IV ONE ×3 (19:41→23:49)
[2023-07-08] MEDS ORDERED: Sodium Chloride 0.9% 1,000 ML IV SCH (23:45)
[2023-07-09] MEDS: Sodium Chloride 0.9% 1,000 ML IV SCH ×7 (01:32→22:02)
[2023-07-09 06:17] LABS: BASOPHILS PERCENT AUTO 0.2 % (0.0-1.5); EOSINOPHILS ABSOLUTE AUTO 0.1 K/uL (0.0-0.7); EOSINOPHILS PERCENT AUTO 1.3 % (0.0-7.0); HEMATOCRIT 41.6 % (38.0-50.0); HEMOGLOBIN 14.2 g/dL (13.0-17.0); LYMPHOCYTES ABSOLUTE AUTO 0.9 K/uL (0.6-2.4); LYMPHOCYTES PERCENT AUTO 14.8 % (16.0-40.0); MEAN CORPUSCULAR HEMOGLOBIN 29.2 pg (27.0-32.0); MEAN CORPUSCULAR HGB CONC 34.1 g/dL (31.0-37.0); MEAN CORPUSCULAR VOLUME 85.6 fL (80.0-98.0); MONOCYTES ABSOLUTE AUTO 0.5 K/uL (0.0-0.8); MONOCYTES PERCENT AUTO 7.4 % (0.0-15.0); NEUTROPHILS ABSOLUTE AUTO 4.9 K/uL (1.4-5.7); NEUTROPHILS PERCENT AUTO 76.3 % (48.0-80.0); NRBC ABSOLUTE 0 K/uL; PLATELET COUNT,PLT 209 K/uL (150-400); RED BLOOD CELL COUNT 4.86 M/uL (4.50-5.90); WHITE BLOOD CELL COUNT,WBC 6.35 K/uL (4.0-11.0)
[2023-07-09 06:54] LABS: CALCIUM 7.6 mg/dL (8.5-10.1); CARBON DIOXIDE,CO2 26.8 mmol/L (21.0-32.0); CREATININE 1.3 mg/dL (0.8-1.3); EST CRCL DRUG DOSING (CG) 86.22 mL/min; POTASSIUM,K 4.5 mmol/L (3.5-5.1)
[2023-07-09 10:52] LABS: ALANINE AMINOTRANSFERASE,ALT 485 IU/L (14-63)
[2023-07-09 10:58] LABS: ASPARTATE AMNIOTRANSFERASE,AST 1406 IU/L (15-37)
[2023-07-09] MEDS: cefTRIAXone 1 GM in Sodium Chloride 0.9% 50 ML IV SCH (11:18)
[2023-07-10] MEDS: Sodium Chloride 0.9% 1,000 ML IV SCH ×7 (01:14→22:53)
[2023-07-10 06:05] LABS: BASOPHILS PERCENT AUTO 0.2 % (0.0-1.5); EOSINOPHILS ABSOLUTE AUTO 0.1 K/uL (0.0-0.7); EOSINOPHILS PERCENT AUTO 0.9 % (0.0-7.0); HEMATOCRIT 41.1 % (38.0-50.0); HEMOGLOBIN 13.9 g/dL (13.0-17.0); LYMPHOCYTES PERCENT AUTO 15.7 % (16.0-40.0); MEAN CORPUSCULAR HEMOGLOBIN 29.2 pg (27.0-32.0); MEAN CORPUSCULAR HGB CONC 33.8 g/dL (31.0-37.0); MEAN CORPUSCULAR VOLUME 86.3 fL (80.0-98.0); MONOCYTES ABSOLUTE AUTO 0.5 K/uL (0.0-0.8); NEUTROPHILS ABSOLUTE AUTO 4.9 K/uL (1.4-5.7); NEUTROPHILS PERCENT AUTO 76.2 % (48.0-80.0); NRBC ABSOLUTE 0 K/uL; PLATELET COUNT,PLT 222 K/uL (150-400); RED BLOOD CELL COUNT 4.76 M/uL (4.50-5.90); WHITE BLOOD CELL COUNT,WBC 6.43 K/uL (4.0-11.0)
[2023-07-10 06:42] LABS: A/G RATIO 0.6 (0.9-1.6); ALBUMIN 2.2 g/dL (3.4-5.0); BILIRUBIN TOTAL 0.4 mg/dL (0.2-1.0); CALCIUM 7.8 mg/dL (8.5-10.1); CARBON DIOXIDE,CO2 26.7 mmol/L (21.0-32.0); CREATININE 1.2 mg/dL (0.8-1.3); EST CRCL DRUG DOSING (CG) 93.41 mL/min; POTASSIUM,K 4.5 mmol/L (3.5-5.1); PROTEIN TOTAL,TP 5.7 g/dL (6.4-8.2)
[2023-07-10] MEDS: cefTRIAXone 1 GM in Sodium Chloride 0.9% 50 ML IV SCH (09:57)
[2023-07-10] MEDS: Enoxaparin 40 MG/0.4 ML Syringe SUBCUT SCH (10:56)
[2023-07-11] MEDS: Sodium Chloride 0.9% 1,000 ML IV SCH ×6 (02:06→22:05)
[2023-07-11 05:57] LABS: BASOPHILS PERCENT AUTO 0.1 % (0.0-1.5); EOSINOPHILS ABSOLUTE AUTO 0.1 K/uL (0.0-0.7); HEMATOCRIT 40.4 % (38.0-50.0); HEMOGLOBIN 13.6 g/dL (13.0-17.0); LYMPHOCYTES ABSOLUTE AUTO 1.1 K/uL (0.6-2.4); LYMPHOCYTES PERCENT AUTO 16.5 % (16.0-40.0); MEAN CORPUSCULAR HEMOGLOBIN 28.7 pg (27.0-32.0); MEAN CORPUSCULAR HGB CONC 33.7 g/dL (31.0-37.0); MEAN CORPUSCULAR VOLUME 85.2 fL (80.0-98.0); MONOCYTES ABSOLUTE AUTO 0.5 K/uL (0.0-0.8); MONOCYTES PERCENT AUTO 7.2 % (0.0-15.0); NEUTROPHILS PERCENT AUTO 75.2 % (48.0-80.0); NRBC ABSOLUTE 0 K/uL; PLATELET COUNT,PLT 220 K/uL (150-400); RED BLOOD CELL COUNT 4.74 M/uL (4.50-5.90); WHITE BLOOD CELL COUNT,WBC 6.68 K/uL (4.0-11.0)
[2023-07-11 06:18] LABS: A/G RATIO 0.6 (0.9-1.6); BILIRUBIN TOTAL 0.8 mg/dL (0.2-1.0); CALCIUM 7.9 mg/dL (8.5-10.1); CARBON DIOXIDE,CO2 25.7 mmol/L (21.0-32.0); CREATININE 1.1 mg/dL (0.8-1.3); EST CRCL DRUG DOSING (CG) 101.9 mL/min; POTASSIUM,K 4.5 mmol/L (3.5-5.1); PROTEIN TOTAL,TP 5.4 g/dL (6.4-8.2)
[2023-07-11] MEDS: Enoxaparin 40 MG/0.4 ML Syringe SUBCUT SCH (10:31)
[2023-07-11] MEDS: cefTRIAXone 1 GM in Sodium Chloride 0.9% 50 ML IV SCH (10:31)
[2023-07-12] MEDS: Sodium Chloride 0.9% 1,000 ML IV SCH ×7 (01:24→22:58)
[2023-07-12 06:22] LABS: BASOPHILS PERCENT AUTO 0.2 % (0.0-1.5); EOSINOPHILS ABSOLUTE AUTO 0.1 K/uL (0.0-0.7); EOSINOPHILS PERCENT AUTO 1.4 % (0.0-7.0); HEMATOCRIT 38.9 % (38.0-50.0); HEMOGLOBIN 13.4 g/dL (13.0-17.0); LYMPHOCYTES ABSOLUTE AUTO 0.9 K/uL (0.6-2.4); MEAN CORPUSCULAR HEMOGLOBIN 29.5 pg (27.0-32.0); MEAN CORPUSCULAR HGB CONC 34.4 g/dL (31.0-37.0); MEAN CORPUSCULAR VOLUME 85.7 fL (80.0-98.0); MONOCYTES ABSOLUTE AUTO 0.4 K/uL (0.0-0.8); MONOCYTES PERCENT AUTO 6.9 % (0.0-15.0); NEUTROPHILS ABSOLUTE AUTO 4.3 K/uL (1.4-5.7); NEUTROPHILS PERCENT AUTO 75.5 % (48.0-80.0); NRBC ABSOLUTE 0 K/uL; PLATELET COUNT,PLT 221 K/uL (150-400); RED BLOOD CELL COUNT 4.54 M/uL (4.50-5.90); WHITE BLOOD CELL COUNT,WBC 5.64 K/uL (4.0-11.0)
[2023-07-12 06:49] LABS: A/G RATIO 0.6 (0.9-1.6); BILIRUBIN TOTAL 0.5 mg/dL (0.2-1.0); CALCIUM 7.8 mg/dL (8.5-10.1); CARBON DIOXIDE,CO2 27.1 mmol/L (21.0-32.0); CREATININE 1.1 mg/dL (0.8-1.3); EST CRCL DRUG DOSING (CG) 101.9 mL/min; POTASSIUM,K 4.1 mmol/L (3.5-5.1); PROTEIN TOTAL,TP 5.3 g/dL (6.4-8.2)
[2023-07-12] MEDS: cefTRIAXone 1 GM in Sodium Chloride 0.9% 50 ML IV SCH (10:48)
[2023-07-12] MEDS: Enoxaparin 40 MG/0.4 ML Syringe SUBCUT SCH (10:50)
[2023-07-13] MEDS: Sodium Chloride 0.9% 1,000 ML IV SCH ×5 (05:31→23:17)
[2023-07-13 06:14] LABS: BASOPHILS PERCENT AUTO 0.4 % (0.0-1.5); EOSINOPHILS ABSOLUTE AUTO 0.1 K/uL (0.0-0.7); EOSINOPHILS PERCENT AUTO 1.8 % (0.0-7.0); HEMOGLOBIN 12.7 g/dL (13.0-17.0); LYMPHOCYTES PERCENT AUTO 19.6 % (16.0-40.0); MEAN CORPUSCULAR HEMOGLOBIN 28.7 pg (27.0-32.0); MEAN CORPUSCULAR HGB CONC 33.4 g/dL (31.0-37.0); MEAN CORPUSCULAR VOLUME 85.8 fL (80.0-98.0); MONOCYTES ABSOLUTE AUTO 0.5 K/uL (0.0-0.8); MONOCYTES PERCENT AUTO 8.8 % (0.0-15.0); NEUTROPHILS ABSOLUTE AUTO 3.6 K/uL (1.4-5.7); NEUTROPHILS PERCENT AUTO 69.4 % (48.0-80.0); NRBC ABSOLUTE 0 K/uL; PLATELET COUNT,PLT 213 K/uL (150-400); RED BLOOD CELL COUNT 4.43 M/uL (4.50-5.90); WHITE BLOOD CELL COUNT,WBC 5.11 K/uL (4.0-11.0)
[2023-07-13 06:58] LABS: A/G RATIO 0.6 (0.9-1.6); ALBUMIN 1.9 g/dL (3.4-5.0); BILIRUBIN TOTAL 0.5 mg/dL (0.2-1.0); CALCIUM 8.2 mg/dL (8.5-10.1); CARBON DIOXIDE,CO2 26.4 mmol/L (21.0-32.0); CREATININE 1.1 mg/dL (0.8-1.3); EST CRCL DRUG DOSING (CG) 101.9 mL/min; POTASSIUM,K 4.3 mmol/L (3.5-5.1); PROTEIN TOTAL,TP 5.1 g/dL (6.4-8.2)
[2023-07-13] MEDS ORDERED: Furosemide 20 MG/2 ML VIAL IVPUSH ONE ×2 (10:12→19:22)
[2023-07-13] MEDS: cefTRIAXone 1 GM in Sodium Chloride 0.9% 50 ML IV SCH (10:14)
[2023-07-13] MEDS: Enoxaparin 40 MG/0.4 ML Syringe SUBCUT SCH (10:31)
[2023-07-14] MEDS: Sodium Chloride 0.9% 1,000 ML IV SCH ×6 (03:04→20:47)
[2023-07-14 06:29] LABS: BASOPHILS PERCENT AUTO 0.2 % (0.0-1.5); EOSINOPHILS ABSOLUTE AUTO 0.1 K/uL (0.0-0.7); EOSINOPHILS PERCENT AUTO 1.9 % (0.0-7.0); HEMATOCRIT 35.8 % (38.0-50.0); HEMOGLOBIN 12.1 g/dL (13.0-17.0); LYMPHOCYTES ABSOLUTE AUTO 1.1 K/uL (0.6-2.4); LYMPHOCYTES PERCENT AUTO 23.2 % (16.0-40.0); MEAN CORPUSCULAR HEMOGLOBIN 28.9 pg (27.0-32.0); MEAN CORPUSCULAR HGB CONC 33.8 g/dL (31.0-37.0); MEAN CORPUSCULAR VOLUME 85.6 fL (80.0-98.0); MONOCYTES ABSOLUTE AUTO 0.5 K/uL (0.0-0.8); MONOCYTES PERCENT AUTO 10.3 % (0.0-15.0); NEUTROPHILS ABSOLUTE AUTO 3.1 K/uL (1.4-5.7); NEUTROPHILS PERCENT AUTO 64.4 % (48.0-80.0); NRBC ABSOLUTE 0 K/uL; PLATELET COUNT,PLT 222 K/uL (150-400); RED BLOOD CELL COUNT 4.18 M/uL (4.50-5.90); WHITE BLOOD CELL COUNT,WBC 4.75 K/uL (4.0-11.0)
[2023-07-14 07:07] LABS: A/G RATIO 0.6 (0.9-1.6); BILIRUBIN TOTAL 0.3 mg/dL (0.2-1.0); CALCIUM 7.9 mg/dL (8.5-10.1); CARBON DIOXIDE,CO2 30.4 mmol/L (21.0-32.0); CREATININE 1.2 mg/dL (0.8-1.3); EST CRCL DRUG DOSING (CG) 93.41 mL/min; POTASSIUM,K 3.6 mmol/L (3.5-5.1); PROTEIN TOTAL,TP 5.3 g/dL (6.4-8.2)
[2023-07-14] MEDS ORDERED: Furosemide 40 MG/4 ML VIAL IVPUSH ONE (10:51)
[2023-07-14] MEDS: Enoxaparin 40 MG/0.4 ML Syringe SUBCUT SCH (11:12)
[2023-07-14] MEDS: cefTRIAXone 1 GM in Sodium Chloride 0.9% 50 ML IV SCH (11:24)
[2023-07-15] MEDS: Sodium Chloride 0.9% 1,000 ML IV SCH ×4 (00:07→11:59)
[2023-07-15 06:30] LABS: BASOPHILS PERCENT AUTO 0.4 % (0.0-1.5); EOSINOPHILS ABSOLUTE AUTO 0.1 K/uL (0.0-0.7); EOSINOPHILS PERCENT AUTO 1.7 % (0.0-7.0); HEMATOCRIT 35.9 % (38.0-50.0); HEMOGLOBIN 12.3 g/dL (13.0-17.0); LYMPHOCYTES ABSOLUTE AUTO 1.2 K/uL (0.6-2.4); LYMPHOCYTES PERCENT AUTO 25.7 % (16.0-40.0); MEAN CORPUSCULAR HEMOGLOBIN 29.1 pg (27.0-32.0); MEAN CORPUSCULAR HGB CONC 34.3 g/dL (31.0-37.0); MEAN CORPUSCULAR VOLUME 85.1 fL (80.0-98.0); MONOCYTES ABSOLUTE AUTO 0.5 K/uL (0.0-0.8); MONOCYTES PERCENT AUTO 9.8 % (0.0-15.0); NEUTROPHILS PERCENT AUTO 62.4 % (48.0-80.0); NRBC ABSOLUTE 0 K/uL; PLATELET COUNT,PLT 231 K/uL (150-400); RED BLOOD CELL COUNT 4.22 M/uL (4.50-5.90); WHITE BLOOD CELL COUNT,WBC 4.79 K/uL (4.0-11.0)
[2023-07-15 07:06] LABS: A/G RATIO 0.7 (0.9-1.6); ALBUMIN 2.2 g/dL (3.4-5.0); BILIRUBIN TOTAL 0.5 mg/dL (0.2-1.0); CALCIUM 7.9 mg/dL (8.5-10.1); CARBON DIOXIDE,CO2 26.4 mmol/L (21.0-32.0); CREATININE 1.1 mg/dL (0.8-1.3); EST CRCL DRUG DOSING (CG) 101.9 mL/min; POTASSIUM,K 3.9 mmol/L (3.5-5.1); PROTEIN TOTAL,TP 5.5 g/dL (6.4-8.2)
[2023-07-15] MEDS: cefTRIAXone 1 GM in Sodium Chloride 0.9% 50 ML IV SCH (10:41)
[2023-07-15] MEDS: Enoxaparin 40 MG/0.4 ML Syringe SUBCUT SCH (10:46)
== END 2023-07-15 14:20 | disposition home or self-care (01) | DRG 557 ==
LOC: MW.ED 16:02 → MW.MS 22:30
PROVIDERS: ADMIT Internal Medicine; ATTEND Internal Medicine
DX: M62.82 Rhabdomyolysis (principal); U07.1 COVID-19; N30.01 Acute cystitis with hematuria; N17.9 Acute kidney failure, unspecified; E86.0 Dehydration; Z79.899 Other long term (current) drug therapy
CPT/HCPCS: 0240U; 36415; 71045; 71045-26; 80048; 80053; 81001; 82550; 84450; 84460; 85025; 87086; 96360; 96361; 99284; 99284-25; J0696; J1650; J1940; J3490; J7030; J7120

== ENCOUNTER 2023-12-20 20:09 | Emergency (ER) | payer OTHER | END 2023-12-20 21:51 | disposition left against medical advice (07) | LOC: MW.ED 20:09 | DX: Z53.21 Procedure and treatment not carried out due to patient leaving prior to being seen by health care provider (principal) ==